=== PATIENT | female | born 1960 | race Caucasian/White ===

== ENCOUNTER → 2022-07-24 12:22 | Outpatient (BNVA) | payer OTHER, SELFPAY | PROVIDERS: Family Provider Family Medicine; PCP Family Medicine; Visit Provider Family Medicine | DX: I10 Essential (primary) hypertension (principal); E78.5 Hyperlipidemia, unspecified; Z00.00 Encounter for general adult medical examination without abnormal findings | CPT/HCPCS: 80053; 80061 ==

== ENCOUNTER 2022-08-07 11:34 | Outpatient (CLI) | payer OTHER, SELFPAY ==
--- NOTE | 2022-08-07 12:00 | MM_ITS ---
WS: [id number] Bilateral screening 3D tomosynthesis digital mammogram, 08/07/2022 Clinical Data: screening Comparison: 03/21/2015, 05/01/2010, 09/03/2006. Findings: The breast parenchymal pattern shows fibroglandular tissue. No spiculated masses or clustered calcifi cations are seen. There are no secondary signs of carcinoma. MM/[place] [id number] Impression: 1. Negative bilateral mammogram unchanged. 2. Recommend annual screening mammograms. BIRADS: 1-Negative FOLLOW UP: 1 Year Follow-up The CAD tip length checker was used.
--- NOTE | 2022-08-07 13:00 | XR_ITS ---
WS: [id number] SCREENING DEXA SCAN [employer] CLINICAL INFORMATION: screening COMPARISON: None. FINDINGS: The L1-L4 bone mineral density measures 0.901 g/cm2. This corresponds to a T score score of -2.3 and Z score of -1.4. Left femoral neck bone mineral density measures 0.921 g/cm2. This corresponds to a T score of -0.7 an d Z score of 0.0. Right femoral neck bone mineral density measures 0.913 g/cm2. This corresponds to a T score -0.8of an d Z score of 0.0. Mean femoral neck bone mineral density measures 0.917 g/cm2. This corresponds to a T score of -0.7 an d Z score of 0.0. XR/XR DEXA axial skeleton* [id number] IMPRESSION: Osteopenia lumbar spine at the upper end of the range. Normal bone mineralizati on femoral necks. Patient's FRAX calculated 10 year probability for major osteoporotic fracture i s 9.8 % and osteoporotic hip fracture is 1.2%.
== END 2022-08-07 11:35 | disposition home or self-care (01) ==
PROVIDERS: Family Provider Family Medicine; PCP Family Medicine; Visit Provider Family Medicine
DX: Z12.31 Encounter for screening mammogram for malignant neoplasm of breast (principal); Z13.820 Encounter for screening for osteoporosis; I10 Essential (primary) hypertension; M85.88 Other specified disorders of bone density and structure, other site
CPT/HCPCS: 77063; 77067; 77080

== ENCOUNTER → 2022-09-21 17:51 | Outpatient (BNVA) | payer OTHER, SELFPAY | PROVIDERS: Family Provider Family Medicine; PCP Family Medicine; Visit Provider Registered Nurse Neonatal Intensive Care | DX: M79.642 Pain in left hand (principal) | CPT/HCPCS: 73130 ==

== ENCOUNTER 2022-11-05 07:21 | Day surgery (SDC) | payer OTHER, SELFPAY ==
[2022-11-03 08:56] VITALS: BMI 27.8
[2022-11-05 07:40] VITALS: BP 114/91; PULSE 65; RESP 18; TEMP 36.1
[2022-11-05] MEDS: sodium chloride 0.9% 1,000 ML 30 ML IV (07:47)
--- NOTE | 2022-11-05 08:04 | ANES.PREANE2 ---
Pre-Anesthetic Assessment Height/Weight: Height 1.7 m Weight 80.739 kg Temp Pulse Resp BP O2 Del Method 97 F L 65 18 114/91 Room Air 11/05/22 07:40 11/05/22 07:40 11/05/22 07:40 11/05/22 07:40 11/05/22 07:40 Preop Diagnosis: Screening Operation Date: 11/05/22 09:00 Proposed Procedures p Colonoscopy 65537,Z12.11(Not Applicable) - Brooks Lemos DO Familial anesthetic complications: None Was Beta Marita taken within 24 hours: N/A Was Clonidine taken within 24 hours: N/A Last intake: Intake Last Liquid Date 11/04/22 Last Liquid Time 22:00 Last Solid Date 11/03/22 Last Solid Time 18:00 Social No alcohol and No tobacco Exam alert, oriented x 3, clear to auscultation bilaterally and regular rate & rhythm Airway Submandibular: within normal limits Cervical ROM: within normal limits Mallampati: Class III Dentition: full History/ROS No significant history except as noted Pulmonary None reported CV/HEM Hypertension None reported Hepatic None reported GI None reported Metabolic None reported Musc/skel None reported Neuropsych None reported Anesthetic Plan ASA status: 2 Anesthesia: Anesthesia Evaluation and MAC Risk of > 500 ml blood loss (7ml/kg in children): No Medications/Allergies Home Medications Medication Instructions Recorded Confirmed Last Taken Type hydrochlorothiazide 25 mg tablet 25 mg PO DAILY #30 tabs 07/24/22 11/03/22 11/04/22 Rx atorvastatin 10 mg tablet 10 mg PO DAILY #30 tabs 08/16/22 11/03/22 11/04/22 Rx escitalopram oxalate 10 mg tablet 10 mg PO DAILY 11/03/22 11/03/22 11/04/22 History (Lexapro) Allergies Allergy/AdvReac Type Severity Reaction Status Date / Time codeine Allergy rash Verified 11/03/22 08:54 morphine Allergy rash Verified 11/03/22 08:54 paxil Allergy Intermediate doesn't Uncoded 11/03/22 08:54 remember Current Medications Generic Name Dose Route Start Last Admin Trade Name Freq PRN Reason Stop Dose Admin Sodium Chloride 1,000 mls @ 30 mls/hr 11/05/22 07:45 11/05/22 07:47 Sodium Chloride 0.9% IV 11/06/22 07:44 30 mls/hr .Q24H SERVANDO Administration PFSH Anesthesia Medical History Hyperlipidemia Hypertension Data Anesthesia Cardiac Studies: No Data to Display
--- NOTE | 2022-11-05 08:31 | PM.HP ---
Providers/Chief Complaint Primary Care Provider: Jose D Fleming MD Chief Complaint: 36599 Z12.11 History of Present Illness Trisha Ibarra is a 62 year old female here for her first screening colonoscopy. She reports that she does have hemorrhoids and had a positive Cologuard. She denies any family history of colon cancer, nausea, emesis, diarrhea, abdominal pain, hematochezia and/or melena. Medications/Allergies Home Medications Medication Instructions Recorded Confirmed Last Taken Type hydrochlorothiazide 25 mg tablet 25 mg PO DAILY #30 tabs 07/24/22 11/03/22 11/04/22 Rx atorvastatin 10 mg tablet 10 mg PO DAILY #30 tabs 08/16/22 11/03/22 11/04/22 Rx escitalopram oxalate 10 mg tablet 10 mg PO DAILY 11/03/22 11/03/22 11/04/22 History (Lexapro) Allergies Allergy/AdvReac Type Severity Reaction Status Date / Time codeine Allergy rash Verified 11/03/22 08:54 morphine Allergy rash Verified 11/03/22 08:54 paxil Allergy Intermediate doesn't Uncoded 11/03/22 08:54 remember PFSH Acute PFSH: Medical History Hyperlipidemia Hypertension Vitals/I&O/Wt Last Vital Signs Temp 97 F L 11/05/22 07:40 Pulse 65 11/05/22 07:40 Resp 18 11/05/22 07:40 BP 114/91 11/05/22 07:40 O2 Del Method Room Air 11/05/22 07:40 Weight last 48 hrs Weight 178 lb A&P Assessment and plan (1) Colon cancer screening: Plan Screening colonoscopy The risks and benefits of the procedure, including bleeding, infection, intestinal perforation requiring surgery, missed lesion were explained to the patient. The patient is understanding of the risks and wishes to proceed. Attestations Medical Necessity Statement*: Home Coding Level of Care Code Acute Code for Chg Fwd Diagnoses Colon cancer screening Z12.11
[2022-11-05 08:51] VITALS: BP 120/67; PULSE 54; RESP 12; TEMP 36.1; O2SAT 98
[2022-11-05 09:01] VITALS: BP 130/76; PULSE 62; RESP 14; O2SAT 95
[2022-11-05 09:07] VITALS: BP 144/84; PULSE 57; RESP 16; O2SAT 95
--- NOTE | 2022-11-05 14:03 | ANE.PACU2 ---
Inpatient post-anesthesia follow up: Airway intact: Yes Vital signs: Temperature 97 F Pulse Rate 57 Respiratory Rate 16 Blood Pressure 144/84 Pulse Oximetry 95 Oxygen Delivery Me thod Room Air Oxygen Flow Rate Fraction of Inspir ed Oxygen Hydration adequate: Yes Nausea and vomiting: No Pain level: 1 Mental status: Baseline
== END 2022-11-05 09:35 | disposition home or self-care (01) ==
PROVIDERS: PCP Family Medicine; Visit Provider Surgery
PROC: 0DJD8ZZ Inspection of Lower Intestinal Tract, Via Natural or Artificial Opening Endoscopic (ICD-10-PCS; CPT 45378; principal; 2022-11-05 09:00)
DX: Z12.11 Encounter for screening for malignant neoplasm of colon (principal); I10 Essential (primary) hypertension; E78.5 Hyperlipidemia, unspecified; K64.9 Unspecified hemorrhoids; D12.5 Benign neoplasm of sigmoid colon
CPT/HCPCS: 45385; 88305; J2704; J7030

== ENCOUNTER → 2023-09-01 09:32 | Outpatient (BNVA) | payer OTHER, SELFPAY | PROVIDERS: PCP Family Medicine; Visit Provider Family Medicine | DX: I10 Essential (primary) hypertension (principal); E78.5 Hyperlipidemia, unspecified | CPT/HCPCS: 80053; 80061 ==

== ENCOUNTER 2023-09-28 08:24 | Outpatient (CLI) | payer OTHER, SELFPAY ==
--- NOTE | 2023-09-28 09:00 | MM_ITS ---
WS: [id number] VIEWS: MLO and CC views both breasts. 3D digital tomosynthesis is also included in this exam. Comparison made with prior exam of 05/01/2010, 03/21/2015, 08/07/2022, 09/03/2006.. Findings: There was no sign of mass, architectural distortion or suspicious calcification in either breast. The re are scattered areas of fibroglandular density Impression: MM/[place] [id number] BI-RADS: 2-Benign finding. FOLLOW-UP: 1 Year Follow-up This mammogram was also analyzed by the Computer Aided Detection System R2 Imag e Edi Analyst.
== END 2023-09-28 08:25 | disposition home or self-care (01) ==
LOC: RAD 08:25
PROVIDERS: PCP Family Medicine; Visit Provider Family Medicine
DX: Z12.31 Encounter for screening mammogram for malignant neoplasm of breast (principal)
CPT/HCPCS: 77063; 77067

== ENCOUNTER 2024-04-20 11:09 | Observation (INO) | payer OTHER, SELFPAY ==
[2024-04-20] VITALS (8 sets, daily range): BP systolic 145–175; BP diastolic 80–116; PULSE 53–126; RESP 15–18; TEMP 36.3–36.5; O2SAT 94–99; BMI 28.0
--- NOTE | 2024-04-20 11:11 | XRR_ITS ---
PROCEDURE INFORMATION: Exam: XR Chest Exam date and time: 04/20/2024 11:43 AM Age: 63 years old Clinical indication: Angina pectoris; Patient HX: Chest pain starting last night. PT has complaints of pain radiating to her back between shoulders. ; Additional info: Cp TECHNIQUE: Imaging protocol: Radiologic exam of the chest. Views: 1 view. COMPARISON: No relevant prior studies available. FINDINGS: Lungs: Calcified granuloma left mid lung zone. No infiltrate or edema. Pleural spaces: Unremarkable. No pleural effusion. No pneumothorax. Heart/Mediastinum: Unremarkable. No cardiomegaly. Bones/joints: Unremarkable. XR/XR chest 1V portable [id number] IMPRESSION: No acute findings.
--- NOTE | 2024-04-20 11:28 | ECG_ITS ---
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 Measurements Intervals [place] Rate: 66 P: 41 NV: 151 QRS: 53 QRSD: 90 T: 79 QT: 429 QTc: 451 Interpretive Statements SINUS RHYTHM MINIMAL ST DEPRESSION [0.025+ mV ST DEPRESSION] INTERPRETATION BASED ON A DEFAULT AGE OF 40 YEARS No previous ECG available for comparison Electronically Signed On 04-20-2024 16:42:57 CDT by Chelsi Diez M.D. [email or web address]; to ([id number] f
[2024-04-20 11:47] LABS: Basophils # 0.1 10^3/uL (0.0-0.1); Basophils % 1.2 %; Eosinophils # 0.1 10^3/uL (0.0-0.8); Eosinophils % 1.6 %; Hematocrit 44.9 % (36-47); Lymphocytes # 1.9 10^3/uL (0.8-4.8); Lymphocytes % 27.8 %; Mean Corpuscular HGB Conc 34.1 g/dL (30-55); Mean Corpuscular Hemoglobin 32.6 pg (27-33); Mean Corpuscular Volume 95.7 fl (85-98); Mean Platelet Volume 8.9 fL (7.4-10.4); Monocytes # 0.5 10^3/uL (0.2-0.9); Monocytes % 7.2 %; Neutrophils # 4.25 10^3/uL (1.8-7.7); Neutrophils % 62.1 %; Nucleated Red Blood Cells % 0 %; Platelet Count 299 10^3/cmm (157-399); Red Blood Count 4.69 10^6/uL (3.85-5.65); White Blood Count 6.84 10^3/uL (3.29-11.43)
[2024-04-20 12:07] LABS: Troponin(5th) Baseline 7 ng/L (0-10)
[2024-04-20 12:12] LABS: Alanine Aminotransferase 38 U/L (0-33); Albumin Level 5.2 g/dL (3.5-5.2); Alkaline Phosphatase 164 U/L (35-105); Anion Gap 17.2 (5-19); Aspartate Amino Transferase 36 U/L (0-32); Blood Urea Nitrogen 11 mg/dL (8-23); Calcium 9.9 mg/dL (8.5-10.5); Carbon Dioxide 26 mmol/L (22-29); Chloride 96 mmol/L (98-107); Creatinine Clr Calc Pharmacy 77.8757; Glomerular Filtration Rate 72.2 mL/min (90-130); Glucose 102 mg/dL (65-115); Lipase 32 U/L (13-60); Osmolality Calculated 280 mOsm/kg (285-295); Potassium 4.2 mmol/L (3.5-5.1); Sodium 135 mmol/L (136-145); Total Bilirubin 0.7 mg/dL (0.15-1.2); Total Protein 8.2 g/dL (6.6-8.7)
--- NOTE | 2024-04-20 13:11 | ECG_ITS ---
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 Measurements Intervals [place] Rate: 62 P: 37 SD: 153 QRS: 39 QRSD: 86 T: 80 QT: 423 QTc: 432 Interpretive Statements SINUS RHYTHM NONSPECIFIC T-WAVE ABNORMALITY No previous ECG available for comparison Electronically Signed On 04-20-2024 16:43:14 CDT by Chelsi Diez M.D. [id number]
--- NOTE | 2024-04-20 13:22 | ED_ITS ---
HPI - Chest Pain 2 General: Chief Complaint: Chest Pain Stated Complaint: chest pain Time Seen by Provider: 04/20/24 13:03 Source: patient Mode of arrival: ambulatory Limitations: no limitations History of Present Illness: 63-year-old female who states she been h aving chest pain the last 2 days. States that pain has been a pressure type pain in the center of the chest she denies any nausea or dyspnea no history of heart disease. She states she has had some hypotension as well. She states she was given a nitro at her PCPs office and her pain did improve but started having some mild pain again she rates a 2 out of 10. Associated symptoms: Deny abdominal pain, dyspnea, fever(s), nausea or vomiting Related Data Home Medications Medication Instructions Recorded Confirmed atorvastatin 10 mg tablet 5 mg PO DAILY 09/01/23 04/20/24 Previous Rx's Medication Instructions Recorded hydrochlorothiazide 25 mg tablet 25 mg PO DAILY #30 tabs 07/24/22 Allergies Allergy/AdvReac Type Severity Reaction Status Date / Time codeine Allergy rash Verified 11/28/22 16:09 morphine Allergy rash Verified 11/28/22 16:09 paxil Allergy Intermediate doesn't Uncoded 11/28/22 16:09 remember Review of Systems 2 Const: Denies: fever(s), chills, body aches or change in appetite ENMT: Denies: throat pain or dental pain Card: Reports: chest pain Resp: Denies: dyspnea GI: Denies: abdominal pain, nausea, vomiting or diarrhea Musc: Denies: neck pain or back pain Skin/Breast: Denies: rash Neuro: Denies: headache(s) PFSH ED 2 PFSH: Medical History Hyperlipidemia Hypertension Social History Smoking and tobacco/nicotine status: unknown if used tobacco/nicotine Physical Exam 2 Const: COMMON NORMALS: patient oriented x3 HENMT: COMMON NORMALS: normocephalic and atraumatic HEAD & SCALP: n ormocephalic and atraumatic Neck/C-Spine: COMMON NORMALS: full ROM and supple Chest: COMMONS NORMALS: normal inspection of the chest and normal palpation of entire chest wall Resp: COMMON NORMALS: normal respiratory effort, No retractions, No use of accessory muscles and clear to auscultation bilaterally AUSCULTATION: clear to auscultation bilaterally Cardio: COMMON NORMALS: regular rate, regular rhythm and No murmurs present (Cardio) RATE: regular rate RHYTHM: regular rhythm GI: COMMON NORMALS: Normal to inspection, nondistended, normoactive bowel sounds present, Soft to palpation, non-tender and no masses PALPATION: Yes Soft to palpation Extremity: COMMON NORMALS: normal to inspection and full ROM Neuro: COMMON NORMALS: patient oriented x3, moves all extremities and no focal motor deficits Psych: COMMON NORMALS: mental status grossly normal, Normal thought process present and cooperative THOUGHT PROCESS: Normal thought process present Skin: COMMON NORMALS: no rashes or lesions noted and no wounds GENERAL SKIN EXAM: no rashes or lesions noted Course 2 Vital Signs: Vital signs: Vital Signs Temperature 97.4 F L 04/20/24 11:31 Pulse Rate 65 04/20/24 14:24 Respiratory Rate 16 04/20/24 14:24 Blood Pressure 146/88 04/20/24 14:24 Pulse Oximetry 94 04/20/24 14:24 Oxygen Delivery Me thod Room Air 04/20/24 14:24 MDM - Chest Pain Medical Decision Making 63-year-old female presented here with chest pain initial repeat troponins here are negative no signs of PE or dissection she had some ongoing off-and-on pains here will admit at this time for ACS rule out. Medical Records I reviewed the patient's medical records. Lab Data I reviewed the patient's lab results. 04/20/24 11:28 04/20/24 11:28 Radiology Impressions Chest X-Ray 04/20/24 11:11 IMPRESSION: No acute findings. Laboratory Results WBC 6.84 10^3/uL (3.29-11.43) 04/20/24 11:28 RBC 4.69 10^6/uL (3.85-5.65) 04/20/24 11:28 Hgb 15.30 g/dL (11.27-16.99) 04/20/24 11:28 Hct 44.9 % (36-47) 04/20/24 11:28 MCV 95.7 fl (85-98) 04/20/24 11:28 MCH 32.6 pg (27-33) 04/20/24 11:28 MCHC 34.1 g/dL (30-55) 04/20/24 11: RDW 12.0 % (12.1-15.1) L 04/20/24 11:28 Plt Count 299 10^3/cmm (157-399) 04/20/24 11:28 MPV 8.9 fL (7.4-10.4) 04/20/24 11:28 Neut % (Auto) 62.1 % 04/20/24 11:28 Lymph % (Auto) 27.8 % 04/20/24 11:28 Randolph % (Auto) 7.2 % 04/20/24 11:28 Eos % (Auto) 1.6 % 04/20/24 11:28 Baso % (Auto) 1.2 % 04/20/24 11: Neut # (Auto) 4.25 10^3/uL (1.8-7.7) 04/20/24 11:28 Lymph # (Auto) 1.9 10^3/uL (0.8-4.8) 04/20/24 11:28 Randolph # (Auto) 0.5 10^3/uL (0.2-0.9) 04/20/24 11:28 Eos # (Auto) 0.1 10^3/uL (0.0-0.8) 04/20/24 11:28 Baso # (Auto) 0.1 10^3/uL (0.0-0.1) 04/20/24 11:28 Nucleated RBC % (auto) 0 % 04/20/24 11:28 Nucleated RBCs # 0.0 /100WBC 04/20/24 11:28 Sodium 135 mmol/L (136-145) L 04/20/24 11:28 Potassium 4.2 mmol/L (3.5-5.1) 04/20/24 11:28 Chloride 96 mmol/L (98-107) L 04/20/24 11:28 Carbon Dioxide 26 mmol/L (22-29) 04/20/24 11:28 Anion Gap 17.2 (5-19) 04/20/24 11:28 BUN 11 mg/dL (8-23) 04/20/24 11:28 Creatinine 0.8 mg/dL (0.5-0.9) 04/20/24 11:28 GFR Calculation 72.2 mL/min (90-130) L 04/20/24 11:28 Glucose 102 mg/dL (65-115) 04/20/24 11:28 Calculated Osmolality 280 mOsm/kg (285-295) L 04/20/24 11:28 Calcium 9.9 mg/dL (8.5-10.5) 04/20/24 11:28 Total Bilirubin 0.7 mg/dL (0.15-1.2) 04/20/24 11:28 AST 36 U/L (0-32) H 04/20/24 11:28 ALT 38 U/L (0-33) H 04/20/24 11:28 Alkaline Phosphatase 164 U/L (35-105) H 04/20/24 11:28 Troponin T Baseline 7 ng/L (0-10) 04/20/24 11:28 Troponin T 120 Minute 6.46 ng/L (0-10) 04/20/24 13:37 Delta Troponin T -0.54 ABS# (0-10) L 04/20/24 13:37 Total Protein 8.2 g/dL (6.6-8.7) 04/20/24 11:28 Albumin 5.2 g/dL (3.5-5.2) 04/20/24 11:28 Globulin 3.0 g/dL (1.3-4.6) 04/20/24 11:28 Lipase 32 U/L (13-60) 04/20/24 11:28 All radiology interpretation(s) finalized by discharge EKG Data EKG 1: I personally reviewed and interpreted this EKG as follows: EKG interpretation date: 04/20/24 EKG interpretation time: 13:11 Interpretation: nsr hr [address] elevation qrs 86 qtc 429 Discharge Plan Discharge Patient Disposition: Placed in Observation Clinical Impression: Chest pain Condition: Stable Prescriptions: No Action hydrochlorothiazide 25 mg tablet 25 mg PO DAILY Qty: 30 11RF atorvastatin 10 mg tablet 5 mg PO DAILY Referrals: Jose D Fleming MD [Primary Care Provider] - Coding Level of Care Code ED Outbound Sales Advisor for Chg Joesph
[2024-04-20 14:18] LABS: Troponin 5 2HR 6.46 ng/L (0-10)
[2024-04-20 14:20] LABS: Troponin 5 2HR Delta -0.54 ABS# (0-10)
--- NOTE | 2024-04-20 15:12 | USCV_ITS ---
Trisha Ibarra Age: 63 Gender: F : 1960 Exam Date: 04/20/2024 15:56 Ordering Phys: Larisa Varner MD Technologist: CT [place] [facility] [place] Indication: cp BP: 145 / 102 HR: 58 Rhythm: Sinus Technical Quality: Adequate MEASUREMENTS (Male / Female) Normal Values 2D ECHO LVOT Diameter 2.1 cm LV Ejection Fraction MOD 4C 64.4 % LV Ejection Fraction MOD 2C 65.1 % LV Ejection Fraction 2C AL 66.2 % LA Diameter 3.6 cm LA Sys Volume AL 47.7 cm cubed LA Sys Volume Index AL 23.9 cm cubed/m squared Aorta at Sinotubular Diameter 2.4 cm IVC Diameter 1.9 cm M-MODE LA Ao Ratio MM 1.6 AV Cusp Separation MM 2.2 cm DOPPLER AV Peak Velocity 86.0 cm/s LVOT Peak Velocity 74.0 cm/s AV Area Cont Eq vti 2.6 cm squared AV Area Cont Eq pk 3.0 cm squared MV Peak Velocity 98.0 cm/s MV Area PHT 2.4 cm squared Mitral E to A Ratio 0.7 TV Peak E Velocity 69.0 cm/s Right Atrial Pressure 3.0 mmHg PV Peak Velocity 91.0 cm/s FINDINGS Left Ventricle Left ventricle is normal in size. LV systolic function is normal with EF 55 to 60%. No regional wall motion abnormalities are seen. Grade 1 diastolic dysfunction Right Ventricle Normal in size and function Right Atrium Normal in size Left Atrium Normal in size Mitral Valve Structurally normal mitral valve. Trace mitral regurgitation. Aortic Valve Structurally normal aortic valve No significant stenosis or regurgitation. Tricuspid Valve Insufficient TR jet to calculate RVSP Pulmonic Valve Not well visualized Pericardium Normal Aorta Normal in size IVC Appears to be normal CONCLUSIONS LV systolic function is normal with EF 55 to 60%. Grade 1 diastolic dysfunction. Trace mitral regurgitation. No comparison studies are available. Epifanio Camargo MD (Electronically Signed) Final Date: 21 April 2024 13:44 S
--- NOTE | 2024-04-20 15:12 | P.HP_ITS ---
Documented by User: Larisa Varner MD 04/20/24 15:12 Providers/Chief Complaint 2 Primary Care Provider: Jose D Fleming MD Chief Complaint: chest pain History of Present Illness Trisha Ibarra is a 63 year old female Medications/Allergies Home Medications Medication Instructions Recorded Confirmed Last Taken Type hydrochlorothiazide 25 mg tablet 25 mg PO DAILY #30 tabs 07/24/22 04/20/24 04/20/24 Rx atorvastatin 10 mg tablet 5 mg PO DAILY 09/01/23 04/20/24 04/20/24 History Allergies Allergy/AdvReac Type Severity Reaction Status Date / Time codeine Allergy rash Verified 11/28/22 16:09 morphine Allergy rash Verified 11/28/22 16:09 paxil Allergy Intermediate doesn't Uncoded 11/28/22 16:09 remember PFSH Acute 2 PFSH: Medical History Hyperlipidemia Hypertension Social History Smoking and tobacco/nicotine status: unknown if used tobacco/nicotine Vitals/I&O/Wt Last Vital Signs Temp 97.4 F L 04/20/24 11:31 Pulse 65 04/20/24 14:24 Resp 16 04/20/24 14:24 BP 146/88 04/20/24 14:24 Pulse Ox 94 04/20/24 14:24 O2 Del Method Room Air 04/20/24 14:24 Weight last 48 hrs Weight 81.193 kg Data 04/20/24 11:28 04/20/24 11:28 A&P Assessment and plan (1) Hypertension: (2) Chest pain: (3) Hyperlipidemia: Coding Level of Care Code 74928 Diagnoses Hypertension I10 Chest pain R07.9 Hyperlipidemia E78.5 Documented by User: Donna Culp MD 04/20/24 19:02 Providers/Chief Complaint 2 Chief Complaint: chest pain History of Present Illness Trisha Ibarra is a 63 year old female With history of hypertension, takes hydrochlorothiazide, lives alone, no previous history of coronary disease presented with chief complaint of chest discomfort. Patient is stating that her symptoms started on Thursday evening when she started experiencing chest discomfort which she is describing as burning sensation, she attributed her symptoms of GERD initially, she started experiencing these chest discomfort on a regular and persistent basis, stating that last night it was pretty much persistent and got worse in the morning, she is denying nausea, vomiting, shortness of breath or diaphoresis. She is now describing it as pressure sensation which sometimes radiates toward her back. Troponin trending down, she is hypertensive blood pressure 170/69 mmHg, Review of Systems 2 Const: Denies: fever(s) Eyes: Denies: change in vision or eye discomfort ENMT: Denies: throat pain Card: Reports: chest pain Resp: Denies: dyspnea GI: Denies: abdominal pain Medications/Allergies Home Medications Medication Instructions Recorded Confirmed Last Taken Type hydrochlorothiazide 25 mg tablet 25 mg PO DAILY #30 tabs 07/24/22 04/20/24 04/20/24 Rx atorvastatin 10 mg tablet 5 mg PO DAILY 09/01/23 04/20/24 04/20/24 History Allergies Allergy/AdvReac Type Severity Reaction Status Date / Time codeine Allergy rash Verified 11/28/22 16:09 morphine Allergy rash Verified 11/28/22 16:09 paxil Allergy Intermediate doesn't Uncoded 11/28/22 16:09 remember PFSH Acute 2 PFSH: Medical History Hyperlipidemia Hypertension Social History Smoking and tobacco/nicotine status: unknown if used tobacco/nicotine Physical Exam 2 Narrative: Euvolemic Hypertensive GCS 15 Pleasant S1, S2 Breath sounds normal without any irritation cells Currently on room air Pleasant cooperative No active chest pain Data 04/20/24 11:28 04/20/24 11:28 A&P Assessment and plan (1) Hypertension: (2) Chest pain: (3) Hyperlipidemia: Plan Unstable angina Troponin starting down No active chest pain Hypertension Added lisinopril Will require stress test in the morning TSH and A1c requested Patient describing her pain as pressure, it started as burning sensation on Thursday It gets better with nitroglycerin She needs optimization of antihypertensive regimen, patient is stating that she takes hydrochlorothiazide on as-needed basis Full code Cardiac diet, n.p.o. after midnight Will request echo DVT prophylaxis added Attestations 2 Medical Necessity Statement*: Anticipating discharge within 42 hours Diagnoses Hypertension I10 Chest pain R07.9 Hyperlipidemia E78.5
[2024-04-20 15:49] LABS: Estmated Average Glucose 114; Hemoglobin A1C 5.6 % (4.0-6.0)
[2024-04-20 15:57] LABS: Cholesterol 342 mg/dL (0-200); HDL Cholesterol 59 mg/dL (60-100); LDL Cholesterol Calculated 225 mg/dL (50-129); LDL HDL Ratio 3.81 RATIO (0.00-3.22); Thyroid Stimulating Hormone 3.14 uIU/mL (0.27-4.20); Triglycerides 288 mg/dL (0-150)
[2024-04-20] MEDS: aspirin 81 mg Chew Tablet 324 MG PO (16:04)
[2024-04-20] MEDS: heparin 5,000 unit/mL INJ 1 mL 5000 UNIT SUBCUT (16:05)
--- NOTE | 2024-04-20 17:11 | ECG_ITS ---
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 Measurements Intervals [place] Rate: 63 P: 19 [place]: 159 QRS: 15 QRSD: 83 T: 77 QT: 411 QTc: 421 Interpretive Statements SINUS RHYTHM NONSPECIFIC ST & T-WAVE ABNORMALITY INTERPRETATION BASED ON A DEFAULT AGE OF 40 YEARS Compared to ECG 04/20/2024 13:11:46 No significant changes Electronically Signed On 04-21-2024 01:00:58 CDT by Chelsi Diez M.D. [id number]
[2024-04-20 18:27] LABS: Troponin 5 6HR 6.24 ng/L (0-10)
[2024-04-20 18:49] LABS: Troponin 5 6HR Delta -0.76 ng/L (0-12)
[2024-04-20] MEDS: atorvastatin 40 mg Tablet PO (20:03)
[2024-04-20] MEDS: lisinopril 10 mg Tablet PO (20:04)
[2024-04-20] MEDS: acetaminophen 325 mg Tablet 650 MG PO (20:04)
[2024-04-20] MEDS: lidocaine 2% viscous 15 ML, aluminum-mag hydrox-simethicon 30 ML, sucralfate oral liq 1 GM PO (20:07)
[2024-04-20 21:29] LABS: D Dimer 0.68 ug/mLFEU (0-0.59)
[2024-04-21] VITALS (8 sets, daily range): BP systolic 93–125; BP diastolic 60–78; PULSE 57–68; RESP 12–19; TEMP 36.4–36.6; O2SAT 92–97
[2024-04-21] MEDS: heparin 5,000 unit/mL INJ 1 mL 5000 UNIT SUBCUT (04:14)
[2024-04-21 05:36] LABS: Basophils # 0.1 10^3/uL (0.0-0.1); Basophils % 1.1 %; Eosinophils # 0.2 10^3/uL (0.0-0.8); Eosinophils % 2.7 %; Hematocrit 41.1 % (36-47); Lymphocytes # 2.2 10^3/uL (0.8-4.8); Lymphocytes % 30.4 %; Mean Corpuscular HGB Conc 33.3 g/dL (30-55); Mean Corpuscular Hemoglobin 32.2 pg (27-33); Mean Corpuscular Volume 96.7 fl (85-98); Mean Platelet Volume 9.5 fL (7.4-10.4); Monocytes # 0.7 10^3/uL (0.2-0.9); Monocytes % 10.4 %; Neutrophils # 3.93 10^3/uL (1.8-7.7); Neutrophils % 55.3 %; Nucleated Red Blood Cells % 0 %; Platelet Count 261 10^3/cmm (157-399); Red Blood Count 4.25 10^6/uL (3.85-5.65); White Blood Count 7.11 10^3/uL (3.29-11.43)
[2024-04-21 05:55] LABS: Anion Gap 15.7 (5-19); Blood Urea Nitrogen 19 mg/dL (8-23); Calcium 8.7 mg/dL (8.5-10.5); Carbon Dioxide 27 mmol/L (22-29); Chloride 98 mmol/L (98-107); Creatinine Clr Calc Pharmacy 62.3006; Glomerular Filtration Rate 55.8 mL/min (90-130); Glucose 105 mg/dL (65-115); Osmolality Calculated 287 mOsm/kg (285-295); Potassium 3.7 mmol/L (3.5-5.1); Sodium 137 mmol/L (136-145)
[2024-04-21] MEDS: regadenoson 0.4 Mg/5 ml Syringe IVP (07:08)
--- NOTE | 2024-04-21 07:21 | PC.NURSE ---
Patient is off the unit at shift change to stress test.
--- NOTE | 2024-04-21 08:40 | PC.NURSE ---
Patient returned from stress test at 0825.
--- NOTE | 2024-04-21 09:20 | PC.NURSE ---
Provider is updated on patients blood pressure of 93/68. Nursing held lisinopril, provider rosetta.
--- NOTE | 2024-04-21 09:47 | P.DS_ITS ---
Discharge Providers Date of Admission: 04/20/24 17:01 Date of Discharge: April 21, 2024 Attending Provider at Admission: Larisa Varner MD Attending Provider at Discharge: Donna Culp MD Primary Care Provider: Jose D Fleming MD Diagnoses at Discharge Discharge Diagnosis (1) Hypertension: Status: Acute (2) Chest pain: Status: Acute (3) Hyperlipidemia: Status: Acute Reason for Visit Reason for Visit: chest pain Hospital Course Hospital Course 63-year female who present to the hospital with chest discomfort which she describing as burning sensation initially which has gotten worse, her blood pressure has been fluctuating she was taking hydrochlorothiazide on as-needed basis, in the hospital she was started on lisinopril, cardiac stress test was requested, D-dimer remained unremarkable, troponins were trending down, no chest pain during hospitalization, she does have dyslipidemia, EKG without ischemic or infarctive changes, nonspecific T wave changes noted, normal TSH. After the stress test blood pressure dropped to 93/66 mmHg, I requested patient not to take hydrochlorothiazide at this point and take only low-dose lisinopril 5 mg daily, she still need to monitor her blood pressure on daily basis. Stress test discussed with the Camargo, he recommended discharge with small dose of lisinopril, patient stating that he is allergic to atorvastatin and would not take high dose, she may discuss with cardiology regarding Repatha Physical Exam Narrative: GCS 15 Pleasant well-appearing Hemodynamically stable Currently on room air No active chest pain awake and alert Discharge Data Studies Completed and Pending Completed Studies During Hospitalization Category Date Time Status XR chest 1V portable [id number] Stat Exams 04/20/24 11:11 Completed Pending at discharge Category Date Time Status Sestamibi Stress Test Request Stat Exams 04/20/24 15:12 Ordered NM gita perf SPECT r/s* [id number] Routine Nuc Med 04/21/24 15:14 Taken CV. echo complete* [id number] Stat Ultrasound 04/20/24 15:12 Taken Radiology Impressions Chest X-Ray 04/20/24 11:11 IMPRESSION: No acute findings. Laboratory Results WBC 7.11 10^3/uL (3.29-11.43) 04/21/24 04:15 RBC 4.25 10^6/uL (3.85-5.65) 04/21/24 04:15 Hgb 13.70 g/dL (11.27-16.99) 04/21/24 04:15 Hct 41.1 % (36-47) 04/21/24 04:15 MCV 96.7 fl (85-98) 04/21/24 04:15 MCH 32.2 pg (27-33) 04/21/24 04:15 MCHC 33.3 g/dL (30-55) 04/21/24 04:15 RDW 12.0 % (12.1-15.1) L 04/21/24 04:15 Plt Count 261 10^3/cmm (157-399) 04/21/24 04:15 MPV 9.5 fL (7.4-10.4) 04/21/24 04:15 Neut % (Auto) 55.3 % 04/21/24 04:15 Lymph % (Auto) 30.4 % 04/21/24 04:15 [place] % (Auto) 10.4 % 04/21/24 04:15 Eos % (Auto) 2.7 % 04/21/24 04:15 Baso % (Auto) 1.1 % 04/21/24 04:15 Neut # (Auto) 3.93 10^3/uL (1.8-7.7) 04/21/24 04:15 Lymph # (Auto) 2.2 10^3/uL (0.8-4.8) 04/21/24 04:15 [place] # (Auto) 0.7 10^3/uL (0.2-0.9) 04/21/24 04:15 Eos # (Auto) 0.2 10^3/uL (0.0-0.8) 04/21/24 04:15 Baso # (Auto) 0.1 10^3/uL (0.0-0.1) 04/21/24 04:15 Nucleated RBC % (auto) 0 % 04/21/24 04:15 Nucleated RBCs # 0.0 /100WBC 04/21/24 04:15 D-Dimer 0.68 ug/mLFEU (0-0.59) H 04/20/24 11:28 Sodium 137 mmol/L (136-145) 04/21/24 04:15 Potassium 3.7 mmol/L (3.5-5.1) 04/21/24 04:15 Chloride 98 mmol/L (98-107) 04/21/24 04:15 Carbon Dioxide 27 mmol/L (22-29) 04/21/24 04:15 Anion Gap 15.7 (5-19) 04/21/24 04:15 BUN 19 mg/dL (8-23) 04/21/24 04:15 Creatinine 1.0 mg/dL (0.5-0.9) H 04/21/24 04:15 GFR Calculation 55.8 mL/min (90-130) L 04/21/24 04:15 Glucose 105 mg/dL (65-115) 04/21/24 04:15 Estimat Average Glucose 114 04/20/24 11:28 Hemoglobin A1c 5.6 % (4.0-6.0) 04/20/24 11:28 Calculated Osmolality 287 mOsm/kg (285-295) 04/21/24 04:15 Calcium 8.7 mg/dL (8.5-10.5) 04/21/24 04:15 Total Bilirubin 0.7 mg/dL (0.15-1.2) 04/20/24 11:28 AST 36 U/L (0-32) H 04/20/24 11:28 ALT 38 U/L (0-33) H 04/20/24 11:28 Alkaline Phosphatase 164 U/L (35-105) H 04/20/24 11:28 Troponin T Baseline 7 ng/L (0-10) 04/20/24 11:28 Troponin T 120 Minute 6.46 ng/L (0-10) 04/20/24 13:37 Delta Troponin T -0.54 ABS# (0-10) L 04/20/24 13:37 Troponin T Hi Sens 6Hr 6.24 ng/L (0-10) 04/20/24 17:58 Troponin T Hi Sens 6Hr Delta -0.76 ng/L (0-12) L 04/20/24 17:58 Total Protein 8.2 g/dL (6.6-8.7) 04/20/24 11:28 Albumin 5.2 g/dL (3.5-5.2) 04/20/24 11:28 Globulin 3.0 g/dL (1.3-4.6) 04/20/24 11:28 Triglycerides 288 mg/dL (0-150) H 04/20/24 11:28 Cholesterol 342 mg/dL (0-200) H 04/20/24 11:28 LDL Cholesterol, Calc 225 mg/dL (50-129) H 04/20/24 11:28 HDL Cholesterol 59 mg/dL (60-100) L 04/20/24 11:28 LDL/HDL Ratio 3.81 RATIO (0.00-3.22) H 04/20/24 11:28 Cholesterol/HDL Ratio 5.80 mg/dL (0.0-4.40) H 04/20/24 11:28 Lipase 32 U/L (13-60) 04/20/24 11:28 TSH 3.14 uIU/mL (0.27-4.20) 04/20/24 11:28 Vitals Last Vital Signs Temp 97.8 F 04/21/24 04:00 Pulse 64 04/21/24 08:50 Resp 17 04/21/24 08:50 BP 93/66 04/21/24 08:50 Pulse Ox 96 04/21/24 08:50 O2 Del Method Room Air 04/21/24 08:50 Discharge Plan Discharge Patient Disposition: Home Condition: Stable Prescriptions: New lisinopril 5 mg tablet 5 mg PO DAILY Qty: 30 3RF Rx Instructions: Hold if blood pressure below 100/60-mmhg Changed atorvastatin 10 mg tablet 20 mg PO DAILY Qty: 90 0RF Discontinued hydrochlorothiazide 25 mg tablet 25 mg PO DAILY Qty: 30 11RF Discharge Orders: Discharge Order (Routine); Ordered 04/21/24 Ordered By: Donna Culp Referrals: Jose D Fleming MD [Primary Care Provider] - Donna Lee MD [Physician] - 7-10 days Discharge Diet: Cardiac Discharge Activity: Increase activity as tolerated Patient Instructions: Opioid Safety Activity Restrictions/Additional Instructions: If your blood pressure is staying above 130/80 Steele mercury it is okay to use of lisinopril 5 mg daily however if it goes down and stays below 100/60 mmHg then stop taking lisinopril Please maintain a blood pressure log and show to Dr. Fleming within a week or so. For your dyslipidemia take atorvastatin 20 mg daily. Discharge Attestations Time Spent in Discharge Care*: greater than 30 min Quality Metrics Clinical Quality Measures [ No reported AMI, CVA or VTE this stay] Coding Level of Care Code Acute Code for Chg Fwd Diagnoses Hypertension I10 Chest pain R07.9 Hyperlipidemia E78.5
--- NOTE | 2024-04-21 15:14 | NMCV_ITS ---
NM gita perf SPECT r/s* [id number] Trisha Ibarra Age: 63 Gender: F : 1960 Exam Date: 04/21/2024 06:27 Ordering Phys: Larisa Varner MD Technologist: CASE Malhotra Exam Location: [facility] Indications: CP STRESS TEST Please see separate stress test report in [facility] for full findings IMAGE PROTOCOL Rest/Stress 1 Lexiscan Day Radiopharmaceutical Dose (mCi) Administration Site Administered by Rest: Tc-99m 10.7 IV Pattie Bauman, PLODDER OPERATOR Sestamibi Stress:Tc-99m 32.9 IV Pattie Rameygle, PLODDER OPERATOR Sestamibi Rest: 21-Apr-2024 60 Discovery 630 Stress: 21-Apr-2024 30 Discovery 630 0.4mg Lexiscan. Images obtained in supine and prone position. SPECT RESULTS Technical Quality: Good Raw Data Analysis: Normal Image Corrections: No attenuation or motion correction applied Summed Stress Score: 4 Summed Rest Score: 0 Summed Difference Score: 4 PERFUSION FINDINGS . Small to moderate area of decreased minimal to moderately decreased tracer uptake involving the apical anterior, apical lateral and mid inferolateral segments. Complete reversibility was noted with the supine imaging. However with the prone imaging, no significant Perfusion normalities were noted FUNCTIONAL RESULTS (calculated via Gated SPECT) Stress Image LV EF (%): 74 Stress EDV (mL):66 TID: 0.95 Stress ESV (mL):17 FUNCTIONAL FINDINGS: segmental wall motion analysis revealing no gross wall motion abnormality IMPRESSIONS 1 .Myocardial perfusion imaging revealing small to moderate area of reversible defect involving the apical anterior, apical lateral and mid inferolateral segments suggesting ischemia in distribution of the left circumflex artery. However because of the inconsistency with the prone imaging, the reliability is questionable. clinical correlation recommended. 2. Normal LV ejection fraction 74% 3.. LV wall motion analysis revealing no gross wall motion abnormalities. 4. Normal LV volume. No similar previous studies are available for comparison Dr Chelsi Diez MD [facility] (Electronically Signed) Final Date: 21 April 2024 12:54 S
== END 2024-04-21 16:09 | disposition home or self-care (01) ==
LOC: ER 17:01 → CSU 17:01
PROVIDERS: Admitting Provider Internal Medicine; Emergency Provider Emergency Medicine; PCP Family Medicine; Visit Provider Internal Medicine
DX: R07.89 Other chest pain (principal); I10 Essential (primary) hypertension; E78.5 Hyperlipidemia, unspecified
CPT/HCPCS: 36415; 71045; 78452; 80048; 80053; 80061; 83036; 83690; 84443; 84484; 85025; 85378; 93005; 93017; 93306; 96372; 99285; A9500; G0378; J1644; J2785

== ENCOUNTER → 2024-04-28 11:39 | Outpatient (BNVA) | payer OTHER, SELFPAY | PROVIDERS: PCP Family Medicine; Visit Provider Family Medicine | DX: I16.0 Hypertensive urgency (principal); R07.9 Chest pain, unspecified | CPT/HCPCS: 80053; 83880; 84484; 85025 ==

== ENCOUNTER 2024-05-12 04:42 | Outpatient (CLI) | payer OTHER, SELFPAY ==
[2024-05-12] VITALS (63 sets, daily range): BP systolic 132–185; BP diastolic 70–97; PULSE 57–72; RESP 11–27; TEMP 36.7–37; O2SAT 90–100; BMI 28.1
[2024-05-12 05:20] LABS: Basophils # 0.1 10^3/uL (0.0-0.1); Basophils % 0.9 %; Eosinophils # 0.2 10^3/uL (0.0-0.8); Eosinophils % 2.8 %; Hematocrit 40.5 % (36-47); Lymphocytes # 2.4 10^3/uL (0.8-4.8); Lymphocytes % 36.6 %; Mean Corpuscular HGB Conc 32.8 g/dL (30-55); Mean Corpuscular Volume 97.6 fl (85-98); Mean Platelet Volume 8.7 fL (7.4-10.4); Monocytes # 0.6 10^3/uL (0.2-0.9); Neutrophils # 3.28 10^3/uL (1.8-7.7); Neutrophils % 50.5 %; Nucleated Red Blood Cells % 0 %; Platelet Count 267 10^3/cmm (157-399); Red Blood Count 4.15 10^6/uL (3.85-5.65); Red Cell Distribution Width 12.1 % (12.1-15.1); White Blood Count 6.48 10^3/uL (3.29-11.43)
[2024-05-12] MEDS: diphenhydrAMINE 50 mg Capsule PO (05:23)
[2024-05-12] MEDS: aspirin 325 mg Tablet PO (05:23)
[2024-05-12 05:38] LABS: Anion Gap 15.1 (5-19); Blood Urea Nitrogen 15 mg/dL (8-23); Calcium 8.8 mg/dL (8.5-10.5); Carbon Dioxide 26 mmol/L (22-29); Chloride 104 mmol/L (98-107); Glomerular Filtration Rate 72.2 mL/min (90-130); Glucose 97 mg/dL (65-115); Osmolality Calculated 293 mOsm/kg (285-295); Potassium 4.1 mmol/L (3.5-5.1); Sodium 141 mmol/L (136-145)
--- NOTE | 2024-05-12 06:00 | XACV_ITS ---
Exam Room: [facility] Ht: 170 cm Wt: 82 kg BSA: 1.98 m2 Gender: Female : 1960 Any Known Allergies: Other Exam Priority: Routine Indication(s): - Chest pain - Unstable angina Procedure(s): Procedure Description: Diagnostic procedure Procedure Description: PCI procedure Procedure Description: Left Heart Catheterization Procedure Description: Drug Eluting Coronary Stent Procedure Description: Miscellaneous Procedure Description: ACT Procedure Description: Coronary Angiography Procedure Description: Pressure Wire Rosa HERBERT; Diagnostic Cath Status: Elective Diagnostic Findings * Left Main has no disease. * Left Anterior Descending has no disease. * Circumflex has no disease. * Proximal Right Coronary Artery: obstructive 60% stenosis, AP: 3 flow. * Mid Right Coronary Artery to Distal Right Coronary Artery: significant 80% stenosis, AP: 3 flow. * Distal Right Coronary Artery: significant 80% stenosis, AP: 3 flow. * Coronary angiography shows right dominance. * IFR: After equalizing the distal and proximal pressure of IFR wire proximal to the lesion, mid RCA lesion was crossed with IFR wire. Spot IFR was recorded 0.87, which is significant a pullback was performed which normalized IFR in the proximal part of the RCA showing that proximal lesion is not significant however mid RCA had significant lesion.. PCI Status: Elective PCI Indication: New Onset Angina <= 2 months Interventional Findings * Mid Right Coronary Artery to Distal Right Coronary Artery: 80% stenosis treated with a AB TREK 2.50X12 RX BALLOON, MDT R BRUNA 3.0X26 KANDIS, and MDT NC EUPHORA RX 3.44S47XP BALLOON. 0% residual stenosis, AP: 3 flow. * Distal Right Coronary Artery: 80% stenosis treated with a MDT R BRUNA 2.75X8 KANDIS, and MDT NC EUPHORA RX 3.08S79TB BALLOON. 0% residual stenosis, AP: 3 flow. Conclusions 1. There is significant coronary artery disease with one vessel disease. 2. Mid Right Coronary Artery to Distal Right Coronary Artery was treated with a Balloon, Drug Eluting Stent, and Balloon. 3. Distal Right Coronary Artery was treated with a Drug Eluting Stent, and Balloon. Recommendations * 1-Return to inpatient for close monitoring and routine cath care 2-Risk factor modification for secondary prevention 3-Statin with LDL goal <70 mg/dl, aspirin 81 mg life-long 4-Patient was pre-loaded with 180mg of Brillinta. Continue Brillinta 90mg p.o. twice daily for at least one year. We will assess at the end of one year again to continue it further or not 5-Continue optimal medical management 6-Follow up with Dr. Lee in four weeks and with your PCP in one week. Interventional RX Recommendation: PCI w/o planned CABG Diagnostic RX Recommendation: PCI w/o planned CABG Pressures Phase:Rest AO : / ( 0 ) @ 6:49:00 AM 101 / 59 ( 79 ) @ 7:05:00 AM 99 / 56 ( 75 ) @ 7:05:00 AM 107 / 59 ( 81 ) @ 7:11:00 AM 89 / 49 ( 64 ) @ 7:22:00 AM 80 / 35 ( 52 ) @ 7:23:00 AM 104 / 52 ( 74 ) @ 7:23:00 AM 138 / 71 ( 99 ) @ 7:25:00 AM 111 / 42 ( 71 ) @ 7:26:00 AM 120 / 71 ( 92 ) @ 7:26:00 AM / ( 0 ) @ 7:42:00 AM 124 / 65 ( 89 ) @ 7:44:00 AM 97 / 49 ( 67 ) @ 7:49:00 AM 156 / 74 ( 106 ) @ 7:56:00 AM 104 / 56 ( 73 ) @ 8:04:00 AM LV : 133 / 27 / 26 @ 7:44:00 AM Clinical Evaluation EBL: 5mL-10mL Procedural Details Procedure Consent Obtained. Admit Source: Out Patient. Current Diagnosis : Unstable angina. Pre-Procedure Time Out. Identified patient by full name and date of as verbalized by the patient/guarantor. Does the consent match the physician's order: Yes. Accurate & Complete Informed Consent: Yes. Inpatient/Outpatient History & Physical on Chart: Yes. If H&P is completed, is and addenduem needed: No; If yes, is the addendum complete: N/A. Visualize and Verify Site with Patient/Guarantor: N/A. Relevant Radiology Images available: N/A. Procedure started. [facility] Clinical Fraility Score: 3: Managing Well. Recruiting Consultant Indications: Worsening Angina. Chest Pain Symptom Assessment: Typical Angina Symptoms. Correct patient, site and procedure confirmed by cath team. Current diagnosis: Chest Pain, Abnormal stress test. PERRLA. Strong, equal hand legal activity adjudicator bilaterally. Lungs clear x 5 lobes. IV Site on Arrival: 20 gauge in the right anticubital. IV Fluids: 0.9% NaCl at KVO. 0 mL infused prior to bottle labeler. Pre Procedural Pulses: bilateral radial was 3+. Pre Procedural Pulses: bilateral posterior tibial was Doppled. Pre Procedural Pulses: bilateral dorsalis pedis was Doppled. Oxygen started at 2liters/min via nasal canula. right radial was prepped with chloroprep then draped in the usual sterile fashion. right groin was prepped with chloroprep then draped in the usual sterile fashion. Physician notified. Baseline sample Acquired. HR: 66 BPM. Physician arrived. Physician scrubbed in. Immediate Pre-Procedure Time Out. Correct Patient: Yes; Correct Procedure: Yes; Correct Site: Yes; Correct Patient Position: Yes; Correct Supplies: Yes; Dried Flammable Prep: Yes; Blood Products Available: N/A;. Lidocaine 1% infiltrated to the right radial. Arterial access obtained. A 5 iraqi TIG catheter in over wire. Multiple views taken of right coronary artery. Catheter redirected to the LCA. Multiple views taken of left coronary artery. Catheter removed over the wire. 6 iraqi JR 4 guide catheter was inserted over the wire. JR 4 Guide seated. ACT drawn. Results 224 seconds. Therapeutic limits - pre-heparin administration 90-150 seconds and monitoring heparin during a vascular procedure >250 seconds. IFR wire inserted. Channels/IFR calibrated and Zeroed. IFR wire advanced across lesion in the rca. IFR SPOT 0.87. IFR wire removed. Runthrough guidewire was advanced through the guide catheter to lesion in the mid RCA. Inflation number : 1 A AB TREK 2.50X12 RX BALLOON was prepped and advanced across the Mid RCA , then inflated to 10 JAMESON for 0:14 seconds. Inflation number: 2 The AB TREK 2.50X12 RX BALLOON was reinflated across the Mid RCA, to 12 JAMESON for 0:16 seconds. Inflation number: 3 The AB TREK 2.50X12 RX BALLOON was reinflated across the Mid RCA, to 12 JAMESON for 0:10 seconds. Results checked. Balloon out. Inflation Number : 4 A MDT R BRUNA 3.0X26 KANDIS -Lot Number# [id number] was prepped and advanced across the Mid RCA. The stent was deployed at 12 JAMESON for 0:30 seconds. EXP 07/27/2026. Results checked. Stent balloon out over wire. Results checked. Inflation number : 5 A MDT NC EUPHORA RX 3.39Y42FQ BALLOON was prepped and advanced across the Mid RCA , then inflated to 8 JAMESON for 0:15 seconds. Inflation number: 6 The MDT NC EUPHORA RX 3.12Z69KR BALLOON was reinflated across the Mid RCA, to 12 JAMESON for 0:21 seconds. Inflation number: 7 The MDT NC EUPHORA RX 3.90D51IQ BALLOON was reinflated across the Mid RCA, to 14 JAMESON for 0:16 seconds. Inflation number: 8 The MDT NC EUPHORA RX 3.95R13LJ BALLOON was reinflated across the Mid RCA, to 14 JAMESON for 0:24 seconds. Inflation number: 9 The MDT NC EUPHORA RX 3.80F72RR BALLOON was reinflated across the Mid RCA, to 14 JAMESON for 0:17 seconds. Inflation number: 10 The MDT NC EUPHORA RX 3.95W46XD BALLOON was reinflated across the Mid RCA, to 14 JAMESON for 0:20 seconds. Balloon out. ACT drawn. Results OUT OF RANGE HIGH. Therapeutic limits - pre-heparin administration 90-150 seconds and monitoring heparin during a vascular procedure >250 seconds. Results checked. Wire out. Results checked. Runthrough wire reinserted. Guidewire advanced across lesion. Stent will not cross. Stent removed intact. Guideliner inserted. GUIDE unseated. Guideliner and wire out. MD review of films. Guide catheter out over the wire. 6 iraqi JR 4 SH guide catheter was inserted over the wire. ACT drawn. Results 372 seconds. Therapeutic limits - pre-heparin administration 90-150 seconds and monitoring heparin during a vascular procedure >250 seconds. Guide seated. EDP Sample taken: LV 133/27,26; HR: 62 BPM; SpO2: 93%. Pullback taken: LV Off; AO Off; Mean: , Peak to Peak: , SEP: ; HR: 64 BPM; SpO2: 91%. Runthrough guidewire was advanced through the guide catheter to lesion in the distal RCA. Inflation Number : 1 A MDT R BRUNA 2.75X8 KANDIS -Lot Number# [id number] was prepped and advanced across the Dist RCA. The stent was deployed at 12 JAMESON for 0:20 seconds. EXP 08/18/2024. Inflation number: 2 The stent balloon was then re-inflated across the Dist RCA to 14 JAMESON for 0:12 seconds. Stent balloon out over the wire. Results checked. Guide not functioning properly. MD switched out. Runthrough wire removed. Guides exchanged. Swapped out for a new JR 4 SH. Guide seated. Runthrough guidewire was advanced through the guide catheter to lesion in the distal RCA. Guidewire advanced across lesion. Inflation number : 3 A MDT NC EUPHORA RX 3.46R25GM BALLOON was prepped and advanced across the Dist RCA , then inflated to 10 JAMESON for 0:22 seconds. Inflation number: 4 The MDT NC EUPHORA RX 3.01O23ZA BALLOON was reinflated across the Dist RCA, to 10 JAMESON for 0:14 seconds. Inflation number: 5 The MDT NC EUPHORA RX 3.62V12UW BALLOON was reinflated across the Dist RCA, to 8 JAMESON for 0:10 seconds. Inflation number: 6 The MDT NC EUPHORA RX 3.16K08TD BALLOON was reinflated across the Dist RCA, to 12 JAMESON for 0:15 seconds. Results checked. Balloon out. Results checked. Wire out. Results checked. Guide catheter out. Physician review of films. Physician scrubbed out. A TR Band was successful obtaining hemostatsis at the Right Radial artery insertion site. TR band placed. Hemostasis obtained. Post Procedure: Pulses reassessed and unchanged. PERRLA. Strong, equal hand legal activity adjudicator bilaterally. No VTE prophylaxis required. Medication waste: Lidocaine- 18 ml. Nitro- 49.2 mg. Heparin- 2000 units. Versed - 1 mg. Fentanyl- 50 mcg. Total IV fluids: 130 mL. Fluoro: 25:05. Contrast type used: Omnipaque 300 mgI/mL, 500 mL bottle. [id number]. Post-op diagnosis: RCA stenosis; Status post 2 Drug Eluting Stents. Complications: None. Estimated blood loss: 5mL-10mL. Responsiveness - Normal response to verbal stimuli; alert and oriented, PERRLA. Airway - Unaffected, no intervention required; spontaneous ventilation. Circulation: W/N/L, pulses unchanged. Nausea/Vomiting: N/A. Procedure completed. Vital chart was stopped. Patient transferred by wheelchair to ICU. Access Site Site: Right Radial artery Sheath Size: 6 Fr Hemostasis Method: TR Band Hemostasis Success: Successful Procedure Medications Start: 6:24 AM Stop: 6:24 AM Medication: Zofran (ondansetron) Amount: 4 mg Route: I.V. Start: 6:28 AM Stop: 6:28 AM Medication: Versed Amount: 1 mg Route: I.V. Start: 6:28 AM Stop: 6:28 AM Medication: Fentanyl Amount: 25 mcg Route: I.V. Start: 6:32 AM Stop: 6:32 AM Medication: Versed Amount: 1 mg Route: I.V. Start: 6:33 AM Stop: 6:33 AM Medication: Fentanyl Amount: 25 mcg Route: I.V. Start: 6:37 AM Stop: 6:37 AM Medication: Nitrogylcerin Amount: 200 mcg Route: I.A. Start: 6:39 AM Stop: 6:39 AM Medication: Heparin Amount: 5000 units Route: I.V. Start: 6:41 AM Stop: 6:41 AM Medication: Versed Amount: 1 mg Route: I.V. Start: 6:50 AM Stop: 6:50 AM Medication: Versed Amount: 1 mg Route: I.V. Start: 7:01 AM Stop: 7:01 AM Medication: Heparin Amount: 4000 units Route: I.V. Start: 7:03 AM Stop: 7:03 AM Medication: Fentanyl Amount: 25 mcg Route: I.V. Start: 7:04 AM Stop: 7:04 AM Medication: Versed Amount: 1 mg Route: I.V. Start: 7:12 AM Stop: 7:12 AM Medication: Versed Amount: 1 mg Route: I.V. Start: 7:14 AM Stop: 7:14 AM Medication: Nitrogylcerin Amount: 200 mcg Route: I.C. Start: 7:16 AM Stop: 7:16 AM Medication: Fentanyl Amount: 25 mcg Route: I.V. Start: 7:24 AM Stop: 7:24 AM Medication: Nitrogylcerin Amount: 200 mcg Route: I.C. Start: 7:33 AM Stop: 7:33 AM Medication: Fentanyl Amount: 25 mcg Route: I.V. Start: 7:36 AM Stop: 7:36 AM Medication: Fentanyl Amount: 25 mcg Route: I.V. Start: 7:40 AM Stop: 7:40 AM Medication: Versed Amount: 1 mg Route: I.V. Start: 8:03 AM Stop: 8:03 AM Medication: Nitrogylcerin Amount: 200 mcg Route: I.C. I, the attending physician, have reviewed and verified all procedure medications. Yes, all medications given per verbal order History/Risk Factors Hypertension: Yes Dyslipidemia: Yes Peripheral Arterial Disease (PAD): No Myocardial Infarction (ND): No Obesity: No Renal Disease: No Prior Interventions PCI: No CABG: No Valve Surgery: No Report Signatures Finalized by Donna Lee MD on 06/02/2024 10:28 PM
--- NOTE | 2024-05-12 06:28 | W.PM.OPSUD ---
Surgery/Procedure H&P Update DATE OF PROCEDURE: May 12, 2024 DATE H&P PERFORMED: 04/27/24 H&P UPDATE INFORMATION: I have reviewed H&P completed within last 30 days, I have examined patient prior to procedure and Changes to prior documentation as noted here (Worsening of chest pressure and GERD like feeling despite of PPI suggestive of unstable angina) PLANNED PROCEDURE: Operation Date: 05/12/24 07:00 Proposed Procedures p Cardiac Catheterization(Left) - Donna Lee MD PATIENT REASSESSED PRIOR TO SEDATION, WITH NO CHANGE NOTED: Yes PHYSICAL EXAM: alert, oriented x 3, clear to auscultation bilaterally, regular rate & rhythm and operative site marked AIRWAY EVAL/ANESTHESIA PLAN: ASA II, Risks, benefits & alternatives of sedation and/or procedure discussed and Patient agrees to continue as planned ADDITIONAL INFORMATION: Mallampati 2
--- NOTE | 2024-05-12 09:15 | PC.NURSE ---
Pt received loading dose of Brilinta in Reading Intervention Teacher. Called Dr Lee regarding scheduled Brilinta dosing. Restart Brilinta 90mg BID tomorrow morning.
[2024-05-12] MEDS: aspirin 81 mg EC Tablet PO (09:19)
[2024-05-12] MEDS: sodium chloride 0.9% 1,000 ML 100 ML IV (09:32)
--- NOTE | 2024-05-12 16:17 | PC.NURSE ---
Pt presented to ICU with 16mls of air in TR Band per Jonathon, Bump Grader Operator nurse. Deflated TR Band 1-2 mls per order since receiving pt. When oozing would occur, air reinflated per protocol and restarted time. Discoloration at site marked for comparison. Site remained soft. Pt denied pain. Currently, 12 mls of air remain in TR Band. Discoloration has not changed for several hours but is now slightly firm. Dr Lee notified and will see pt.
--- NOTE | 2024-05-12 22:28 | PC.NURSE ---
Upon arrival to shift, Dr. Lee, myself, and dayshift nurse were at patient's bedside. Patient had a noted hematoma to right wrist with 12mL remaining in TR band. Patient denied pain. After a couple hours or resumed pressure, this nurse released 2mL of air Q15min at a time from TR band, at 2225 the TR band was removed, no leaking or increase in size to hematoma noted.
--- NOTE | 2024-05-12 23:40 | P.HP_ITS ---
Providers/Chief Complaint 2 Admitting Physician: Donna Lee MD Primary Care Provider: Jose D Fleming MD Chief Complaint: I20.0, R06.02 History of Present Illness Trisha Ibarra is a 63 year old female was admitted today after left heart catheterization for worsening of angina and shortness of breath she was noted to have significant mid RCA and nonsignificant proximal RCA disease by IFR. It was treated with 2 overlapping drug-eluting stent from mid to distal RCA postdilated with noncompliant balloon. Excellent angiographic result and AP-3 flow was achieved. Rest of vessel including left main LAD and circumflex has luminal irregularities. Medications/Allergies Home Medications Medication Instructions Recorded Confirmed Last Taken Type acetaminophen 500 mg capsule 500 mg PO BID 04/27/24 05/11/24 Unknown History amlodipine 2.5 mg tablet 2.5 mg PO BID #180 tabs 04/27/24 05/11/24 05/12/24 04:00 Rx ibuprofen 200 mg capsule 200 mg PO BID 04/27/24 05/11/24 05/11/24 20:00 History rosuvastatin 10 mg tablet (Crestor) 10 mg PO DAILY #90 tabs 04/27/24 05/11/24 05/11/24 20:00 Rx Allergies Allergy/AdvReac Type Severity Reaction Status Date / Time atorvastatin Allergy bad hip Verified 05/12/24 05:35 pain codeine Allergy rash Verified 05/12/24 05:35 lisinopril Allergy cough Verified 05/12/24 05:35 morphine Allergy rash Verified 05/12/24 05:35 paxil Allergy Intermediate doesn't Uncoded 05/12/24 05:35 remember macrobid Allergy ALGY-Difficulty Uncoded 05/12/24 05:35 Breathing PFSH Acute 2 PFSH: Medical History Chest pain Hyperlipidemia Hypertension Social History Smoking and tobacco/nicotine status: unknown if used tobacco/nicotine Vitals/I&O/Wt Last Vital Signs Temp 98.0 F 05/12/24 08:30 Pulse 64 05/12/24 22:00 Resp 14 05/12/24 21:45 BP 152/88 05/12/24 21:45 Pulse Ox 90 05/12/24 21:45 O2 Del Method Room Air 05/12/24 21:15 05/12/24 05/12/24 05/13/24 14:59 22:59 06:59 Intake Total 1000 / 1000 Balance 1000 / 1000 Weight last 48 hrs Weight 180 lb Physical Exam 2 Const: OTHER: GENERAL: Patient is alert, awake and oriented x3. HEART: Regular S1 and S2. No murmur, rub or gallop. LUNGS: Clear to auscultate bilaterally. CENTRAL NERVOUS SYSTEM: Grossly nonfocal. EXTREMITIES: Lower extremities with out edema bilaterally. Data 05/12/24 05:15 05/12/24 05:15 A&P Assessment and plan (1) CAD (coronary artery disease): Status post PCI to mid to distal RCA with 2 overlapping drug-eluting stent. Excellent angiographic result was achieved. Patient will be admitted for observation post PCI. Continue aspirin statin and Brilinta. Continue home medicine in the form of amlodipine 5 mg once a day. Patient will be advised to take 90 mg of Brilinta twice a day and 81 mg of aspirin for at least 1 year. Qualifiers: Coronary Disease-Associated Artery/Lesion type: [place] artery [place] vs. transplanted heart: [place] heart Associated angina: with unstable angina Qualified Code(s): I25.110 - Atherosclerotic heart disease of [place] coronary artery with unstable angina pectoris (2) Labile hypertension: Continue amlodipine 5 mg give first dose now Plan Require continuation hospitalization for above defined care Attestations 2 Medical Necessity Statement*: I am not expecting patient's stay to cross more than 1 midnight. Coding Level of Care Code Acute Code for [facility] Diagnoses Coronary artery disease involving [place] coronary artery of [place] heart with unstable angina pectoris I25.110 Coronary Disease-Associated Artery/Lesion type: [place] artery [place] vs. transplanted heart: [place] heart Associated angina: with unstable angina Labile hypertension R09.89
[2024-05-13] VITALS (54 sets, daily range): BP systolic 101–153; BP diastolic 63–90; PULSE 59–77; RESP 13–30; TEMP 36.3–36.8; O2SAT 88–99; BMI 28.5
--- NOTE | 2024-05-13 01:14 | PC.NURSE ---
Hold amlodipine: Patient's BP was maintained below [address] Lee gave telephone orders to hold evening dose of amlodipine.
[2024-05-13 05:06] LABS: Basophils # 0.1 10^3/uL (0.0-0.1); Basophils % 0.8 %; Eosinophils # 0.2 10^3/uL (0.0-0.8); Eosinophils % 2.6 %; Hematocrit 38.7 % (36-47); Lymphocytes # 1.8 10^3/uL (0.8-4.8); Mean Corpuscular HGB Conc 33.3 g/dL (30-55); Mean Corpuscular Hemoglobin 32.7 pg (27-33); Mean Platelet Volume 9.2 fL (7.4-10.4); Monocytes # 0.6 10^3/uL (0.2-0.9); Monocytes % 9.7 %; Neutrophils # 3.93 10^3/uL (1.8-7.7); Neutrophils % 59.4 %; Nucleated Red Blood Cells % 0 %; Platelet Count 257 10^3/cmm (157-399); Red Blood Count 3.95 10^6/uL (3.85-5.65); Red Cell Distribution Width 12.2 % (12.1-15.1)
[2024-05-13 05:30] LABS: Anion Gap 15.3 (5-19); Blood Urea Nitrogen 14 mg/dL (8-23); Calcium 8.7 mg/dL (8.5-10.5); Carbon Dioxide 26 mmol/L (22-29); Chloride 102 mmol/L (98-107); Creatinine Clr Calc Pharmacy 78.0794; Glomerular Filtration Rate 72.2 mL/min (90-130); Glucose 103 mg/dL (65-115); Osmolality Calculated 289 mOsm/kg (285-295); Potassium 4.3 mmol/L (3.5-5.1); Sodium 139 mmol/L (136-145)
[2024-05-13] MEDS: amlodipine 5 mg Tablet PO (08:15)
[2024-05-13] MEDS: aspirin 81 mg EC Tablet PO (08:15)
[2024-05-13] MEDS: ticagrelor 90 mg Tablet PO (08:16)
--- NOTE | 2024-05-13 13:04 | PC.NURSE ---
Discharge vitals: Temp: 97.9 HR: 71 BP: 129/83 RR: 17 SPO2: 97% RA
--- NOTE | 2024-05-13 13:05 | PC.NURSE ---
Patient being discharged. IVs removed. Vitals documents. Education provided on upcoming appointments and new medications. Medications provided via Meds to bed. patient signature form signed.
--- NOTE | 2024-05-13 15:39 | PM.DCS ---
Discharge Providers Date of Admission: 05/12/2024 Date of Discharge: May 13, 2024 Attending Provider at Admission: Donna Lee MD Attending Provider at Discharge: Donna Lee MD Consults: none Primary Care Provider: Jose D Fleming MD Diagnoses at Discharge Discharge Diagnosis (1) CAD (coronary artery disease): Details from hospital stay: Trisha Ibarra is a 63 year old female was admitted after left heart catheterization for worsening of angina and shortness of breath she was noted to have significant mid RCA and nonsignificant proximal RCA disease by IFR. It was treated with 2 overlapping drug-eluting stent from mid to distal RCA postdilated with noncompliant balloon. Excellent angiographic result and AP-3 flow was achieved. Rest of vessel including left main LAD and circumflex has luminal irregularities. Recommend continue aspirin and Brilinta x 1 year. Status: Acute Qualifiers: Coronary Disease-Associated Artery/Lesion type: [place] artery [place] vs. transplanted heart: [place] heart Associated angina: with unstable angina Qualified Code(s): I25.110 - Atherosclerotic heart disease of [place] coronary artery with unstable angina pectoris (2) Labile hypertension: Details from hospital stay: Well-controlled blood pressure 129/83. Status: Acute Reason for Visit Reason for Visit: I20.0, R06.02 Brief History: Trisha Ibarra is a 63 year old female was admitted today after left heart catheterization for worsening of angina and shortness of breath she was noted to have significant mid RCA and nonsignificant proximal RCA disease by IFR. It was treated with 2 overlapping drug-eluting stent from mid to distal RCA postdilated with noncompliant balloon. Excellent angiographic result and AP-3 flow was achieved. Rest of vessel including left main LAD and circumflex has luminal irregularities. Post cath patient did well. She did have some bruising of the right upper wrist. This was moderate. No evidence of hematoma. Patient with some tenderness but no signs of limb threatening ischemia. She was educated to elevate the arm. She has full function of the area. Discussed with patient no heavy lifting more than a gallon of milk as well as going up or down steps for 3 days. No driving for 3 days. Monitor for and report signs or symptoms of bleeding. Monitor for and report s/s of infection such as fever 101 or greater, swelling, redness or pain to the wrist. Hospital Course Hospital Course Trisha Ibarra is a 63 year old female was admitted today after left heart catheterization for worsening of angina and shortness of breath she was noted to have significant mid RCA and nonsignificant proximal RCA disease by IFR. It was treated with 2 overlapping drug-eluting stent from mid to distal RCA postdilated with noncompliant balloon. Excellent angiographic result and AP-3 flow was achieved. Rest of vessel including left main LAD and circumflex has luminal irregularities. Post cath patient did well. She did have some bruising of the right upper wrist. This was moderate. No evidence of hematoma. Patient with some tenderness but no signs of limb threatening ischemia. She was educated to elevate the arm. She has full function of the area. Discussed with patient no heavy lifting more than a gallon of milk as well as going up or down steps for 3 days. No driving for 3 days. Monitor for and report signs or symptoms of bleeding. Monitor for and report s/s of infection such as fever 101 or greater, swelling, redness or pain to the wrist. Physical Exam Narrative: General: No apparent distress, healthy appearing, well nourished HENMT: normoceophalic Eye: PERRL Neck: No carotid bruit bilaterally Muskuloskeletal: Full ROM Lymphatic: no lymphedema noted Respiratory: Normal respiratory effort, clear to auscultation bilaterally throughout all lung elder, no use of accessory muscles Cardio: No JVD, regular rate, regular rhythm, S1 S2 normal, no murmurs, peripheral pulses 2+ throughout GI: Normal to inspection, nondistended Extremities: Full ROM, normal, normal capillary refill, no cyanosis or edema Neuro: Alert and oriented x4, no focal motor deficits Psych: Affect normal, denies suicidal ideation, mental status grossly normal Skin: Right wrist with moderate bruising from previous cath site no evidence of hematoma area soft mildly tender full function of patient's upper extremity no signs of ischemia Discharge Data Studies Completed and Pending Pending at discharge Category Date Time Status LABOR RELATIONS DIRECTOR request for service Routine Exams 05/12/24 06:00 Taken Laboratory Results WBC 6.60 10^3/uL (3.29-11.43) 05/13/24 04:17 RBC 3.95 10^6/uL (3.85-5.65) 05/13/24 04:17 Hgb 12.90 g/dL (11.27-16.99) 05/13/24 04:17 Hct 38.7 % (36-47) 05/13/24 04:17 MCV 98.0 fl (85-98) 05/13/24 04:17 MCH 32.7 pg (27-33) 05/13/24 04:17 MCHC 33.3 g/dL (30-55) 05/13/24 04:17 RDW 12.2 % (12.1-15.1) 05/13/24 04:17 Plt Count 257 10^3/cmm (157-399) 05/13/24 04:17 MPV 9.2 fL (7.4-10.4) 05/13/24 04:17 Neut % (Auto) 59.4 % 05/13/24 04:17 Lymph % (Auto) 27.0 % 05/13/24 04:17 [place] % (Auto) 9.7 % 05/13/24 04:17 Eos % (Auto) 2.6 % 05/13/24 04:17 Baso % (Auto) 0.8 % 05/13/24 04:17 Neut # (Auto) 3.93 10^3/uL (1.8-7.7) 05/13/24 04:17 Lymph # (Auto) 1.8 10^3/uL (0.8-4.8) 05/13/24 04:17 [place] # (Auto) 0.6 10^3/uL (0.2-0.9) 05/13/24 04:17 Eos # (Auto) 0.2 10^3/uL (0.0-0.8) 05/13/24 04:17 Baso # (Auto) 0.1 10^3/uL (0.0-0.1) 05/13/24 04:17 Nucleated RBC % (auto) 0 % 05/13/24 04:17 Nucleated RBCs # 0.0 /100WBC 05/13/24 04:17 Sodium 139 mmol/L (136-145) 05/13/24 04:17 Potassium 4.3 mmol/L (3.5-5.1) 05/13/24 04:17 Chloride 102 mmol/L (98-107) 05/13/24 04:17 Carbon Dioxide 26 mmol/L (22-29) 05/13/24 04:17 Anion Gap 15.3 (5-19) 05/13/24 04:17 BUN 14 mg/dL (8-23) 05/13/24 04:17 Creatinine 0.8 mg/dL (0.5-0.9) 05/13/24 04:17 GFR Calculation 72.2 mL/min (90-130) L 05/13/24 04:17 Glucose 103 mg/dL (65-115) 05/13/24 04:17 Calculated Osmolality 289 mOsm/kg (285-295) 05/13/24 04:17 Calcium 8.7 mg/dL (8.5-10.5) 05/13/24 04:17 Vitals Last Vital Signs Temp 97.9 F 05/13/24 12:45 Pulse 65 05/13/24 12:45 Resp 19 H 05/13/24 12:45 BP 129/83 05/13/24 13:00 Pulse Ox 96 05/13/24 12:45 O2 Del Method Room Air 05/13/24 10:45 Discharge Plan Discharge Patient Disposition: Home Prescriptions: New aspirin 81 mg Tablet,Delayed Release (Dr/Ec) 81 mg PO DAILY 90 Days Qty: 90 3RF Brilinta 90 mg Tablet 90 mg PO BID 30 Days Qty: 60 0RF Continued acetaminophen 500 mg capsule 500 mg PO BID ibuprofen 200 mg capsule 200 mg PO BID rosuvastatin [Crestor] 10 mg tablet 10 mg PO DAILY Qty: 90 3RF amlodipine 2.5 mg tablet 2.5 mg PO BID Qty: 180 2RF Discharge Orders: Discharge Order (Routine); Ordered 05/13/24 Ordered By: Milana Paredes Referrals: Ratna Abraham FNP [Nurse Practitioner] - 05/25/24 3:30 pm (post angiogram follow up, an appoitnment has been arranged for you if you are not able to keep this appointment please contact the clinic to arrange your follow up care. ) Jose D Fleming MD [Primary Care Provider] - 05/17/24 12:20 pm Patient Instructions: CHF Stoplight, Post Angiogram Home Care Instructions Activity Restrictions/Additional Instructions: Discussed with patient no heavy lifting more than a gallon of milk as well as going up or down steps for 3 days. No driving for 3 days. Monitor for and report signs or symptoms of bleeding. Monitor for and report s/s of infection such as fever 101 or greater, swelling, redness or pain to the wrist. Elevate wrist at least to level of the heart when not in use. Discharge Date/Time: 05/13/24 13:23 Discharge Attestations Time Spent in Smoking Cessation: more than 10 minutes Coding Level of Care Code Acute Code for [facility] Diagnoses Coronary artery disease involving [place] coronary artery of [place] heart with unstable angina pectoris I25.110 Coronary Disease-Associated Artery/Lesion type: [place] artery [place] vs. transplanted heart: [place] heart Associated angina: with unstable angina Labile hypertension R09.89
== END 2024-05-13 13:23 | disposition home or self-care (01) ==
LOC: CCL 04:52 → ICU 10:53
PROVIDERS: PCP Family Medicine; Visit Provider Internal Medicine Cardiovascular Disease
DX: I25.110 Atherosclerotic heart disease of native coronary artery with unstable angina pectoris (principal); R09.89 Other specified symptoms and signs involving the circulatory and respiratory systems; E78.5 Hyperlipidemia, unspecified; I10 Essential (primary) hypertension
CPT/HCPCS: 36415; 80048; 85025; 85347; 93458; 93571; 96374; 96375; 99152; 99153; C1725; C1769; C1874; C1887; C1894; C9600; J1644; J2250; J2405; J3010; J3490; J7030; Q0163; Q9967

== ENCOUNTER → 2024-05-19 13:42 | Outpatient (BNVA) | payer OTHER, SELFPAY | PROVIDERS: PCP Family Medicine; Visit Provider Nurse Practitioner Family | DX: I25.110 Atherosclerotic heart disease of native coronary artery with unstable angina pectoris (principal) | CPT/HCPCS: 36415; 80048 ==

== ENCOUNTER → 2024-07-13 12:38 | Outpatient (BNVA) | payer MEDICARE, SELFPAY | PROVIDERS: PCP Family Medicine; Visit Provider Internal Medicine Cardiovascular Disease | DX: I25.110 Atherosclerotic heart disease of native coronary artery with unstable angina pectoris (principal); I10 Essential (primary) hypertension; Z87.891 Personal history of nicotine dependence | CPT/HCPCS: 99213 ==

== ENCOUNTER → 2024-09-23 08:19 | Outpatient (BNVA) | payer MEDICARE, SELFPAY | PROVIDERS: PCP Family Medicine; Visit Provider Family Medicine | DX: I10 Essential (primary) hypertension (principal); E78.5 Hyperlipidemia, unspecified; I25.110 Atherosclerotic heart disease of native coronary artery with unstable angina pectoris | CPT/HCPCS: 80053; 80061; 85025 ==

== ENCOUNTER 2024-11-18 12:01 | Outpatient (CLI) | payer MEDICARE, SELFPAY ==
[2024-11-18 13:00] LABS: Free T4 Free Thyroxine 1.27 ng/dL (0.82-1.77); T3 Free 2.9 PG/ML (2.0-4.4)
== END 2024-11-18 12:02 | disposition home or self-care (01) ==
PROVIDERS: PCP Family Medicine; Visit Provider Internal Medicine Cardiovascular Disease
DX: I10 Essential (primary) hypertension (principal); R53.83 Other fatigue
CPT/HCPCS: 36415; 84439; 84443; 84481

== ENCOUNTER → 2024-12-22 10:50 | Outpatient (BNVA) | payer MEDICARE, SELFPAY | PROVIDERS: PCP Family Medicine; Visit Provider Family Medicine | DX: I10 Essential (primary) hypertension (principal); I25.110 Atherosclerotic heart disease of native coronary artery with unstable angina pectoris | CPT/HCPCS: 80053; 80061; 85025 ==

== ENCOUNTER → 2025-01-23 13:03 | Outpatient (BNVA) | payer MEDICARE, SELFPAY | PROVIDERS: PCP Family Medicine; Visit Provider Internal Medicine Cardiovascular Disease | DX: I25.10 Atherosclerotic heart disease of native coronary artery without angina pectoris (principal); I10 Essential (primary) hypertension; I87.2 Venous insufficiency (chronic) (peripheral); E78.5 Hyperlipidemia, unspecified; Z79.02 Long term (current) use of antithrombotics/antiplatelets; Z79.82 Long term (current) use of aspirin; Z95.5 Presence of coronary angioplasty implant and graft; Z87.891 Personal history of nicotine dependence | CPT/HCPCS: 99214 ==

== ENCOUNTER 2025-02-08 07:04 | Outpatient (CLI) | payer MEDICARE, SELFPAY ==
--- NOTE | 2025-02-08 07:15 | USCV_ITS ---
Trisha Ibarra Age: 64 Gender: F : 1960 Exam Date: 02/08/2025 07:12 Ordering Phys: Donna Lee MD ([email or web address]) Technologist: R Exam Location[place] [facility] [place]ication: SCREENING HISTORY: Diameter (cm) AP x Transverse x Length Velocity (cm/s) Waveform Prox Aorta: 1.70 x 1.70 x 69.50 Mid Aorta: 1.80 x 1.90 x 80.00 Distal Aorta: 2.00 x 2.00 x 73.90 Right Iliac Prox: 0.90 x 1.10 x 96.90 Left Iliac Prox: 0.89 x 1.16 x 88.00 Stent Prox Landing x x Aneurysmal Sac Max x x Lt Lat Sac Dim Rt Lat Sac Dim Stent Dist [place] x x Right Iliac Stent x x Left Iliac Stent x x Right Renal Art Left Renal Art FINDINGS: Comparison: none available. A complete assessment of the abdominal aorta was not possible. No evidence of abdominal aortic aneurysm. There is no evidence of right common iliac artery stenosis. There is no evidence of left common iliac artery stenosis. CONCLUSIONS No evidence of abdominal aortic or bilateral iliac aneurysm. Dr. Brooklyn Wells DO (Electronically Signed) Final Date: 08 February 2025 09:02 S
== END 2025-02-08 07:05 | disposition home or self-care (01) ==
LOC: RAD 07:04
PROVIDERS: PCP Family Medicine; Visit Provider Internal Medicine Cardiovascular Disease
DX: Z13.6 Encounter for screening for cardiovascular disorders (principal); R07.9 Chest pain, unspecified
CPT/HCPCS: 76706

== ENCOUNTER 2025-04-13 11:20 | Emergency (ER) | payer MEDICARE, SELFPAY ==
[2025-04-13 11:22] VITALS: BP 123/89; PULSE 118; RESP 18; TEMP 36.7; O2SAT 100
--- NOTE | 2025-04-13 11:27 | CT_ITS ---
WS: [id number] CT HEAD TECHNIQUE: Noncontrast CT of the head obtained from the skullbase to the vertex. CLINICAL INFORMATION: Symptoms of acute stroke COMPARISON: 2012 DLP: [address] scans at [facility] use at least one of these dose optimization techniques: automated exposure control; mA and/or kV adjustment per patient size (includes targeted exams where dose is matched to clinical indication); or iterative reconstruction. FINDINGS: No evidence of intracranial hemorrhage or mass effect. Ventricular system and basal cisterns are patent. Mild small vessel changes with no significant parenchymal volume loss. No extra-axial fluid collections. No evidence of mass or mass effect. Vascular calcification. Paranasal sinuses and mastoid air cells are well aerated. .Normal visualized soft tissues. CT/CT head thrombolytic [id number] IMPRESSION: 1. No evidence of intracranial hemorrhage or mass effect. 2. No acute intracranial findings. Notified Erna Delaney MD at 04/13/2025 11:46 AM.
--- NOTE | 2025-04-13 11:27 | CT_ITS ---
WS: [id number] CTA HEAD AND NECK TECHNIQUE: Contrast enhanced CTA of the head and neck with coronal and sagittal reformatted images and maximum intensity projection (MIP) images. NASCET criteria utilized. CLINICAL INFORMATION: Possible stroke COMPARISON: None. DLP: 423.[address] scans at [facility] use at least one of these dose optimization techniques: automated exposure control; mA and/or kV adjustment per patient size (includes targeted exams where dose is matched to clinical indication); or iterative reconstruction. FINDINGS: RIGHT: Mild atheromatous plaque RIGHT carotid bulb. No significant RIGHT ICA stenosis. RIGHT ICA is patent to the skull base. LEFT: LEFT common carotid artery is patent. Mild atheromatous plaque LEFT carotid bulb. No significant LEFT ICA stenosis. LEFT ICA is patent to the skull base. INTRACRANIAL CTA: The basilar artery is patent. Normal vascularity to the PHYSICIAN LIAISON territory bilaterally. Both ICAs are patent at the skull base. Mild cavernous carotid calcification. Normal vascularity to the JAE and MCA territories bilaterally. No evidence of proximal flow-limiting stenosis. Patent posterior communicating arteries bilaterally. Proximal subclavian arteries are patent. CT/CT angio headneck* [id number] IMPRESSION: 1. No significant cervical ICA stenosis. 2. No flow-limiting intracranial stenosis.
--- NOTE | 2025-04-13 11:28 | W.ED.NEUROSD ---
HPI - Neuro Symptoms/Deficit General: Chief Complaint: Neuro Symptoms/Deficit Stated Complaint: Possible Stroke Time Seen by Provider: 04/13/25 11:27 History of Present Illness: 64-year-old female with history of coronary artery disease status post stents on Plavix and lovastatin, Venous insufficiency, hyperlipidemia, hypertension who presents to the emergency room with neurologic symptoms that have since resolved. [facility] suddenly felt numb on her left face and her left arm was numb and felt like it was not her she says. Some weakness in it. This only lasted briefly and then went away but then came back again briefly and is now gone. No slurred speech. No altered mental status. No chest pain. No abdominal pain. Currently she has no neurologic symptoms. Related Data Home Medications ?Medication ?Instructions ?Recorded ?Confirmed acetaminophen 500 mg capsule 500 mg PO BID PRN Pain 07/13/24 04/13/25 Previous Rx's ?Medication ?Instructions ?Recorded aspirin 81 mg tablet,delayed 81 mg PO DAILY 90 days #90 tabs 05/13/24 release nitroglycerin 0.4 mg sublingual 0.4 mg sublingual Q5M PRN chest 05/17/24 tablet pain #25 tabs clopidogrel 75 mg tablet 75 mg PO DAILY #90 tabs 05/19/24 lovastatin 20 mg tablet 20 mg PO DAILY #90 tabs 06/22/24 pantoprazole 40 mg tablet,delayed 40 mg PO DAILY #90 tabs 06/22/24 release amlodipine 2.5 mg tablet 2.5 mg PO BID #180 tabs 03/07/25 lovastatin 40 mg tablet 40 mg PO DAILY #30 tabs 04/13/25 Allergies Allergy/AdvReac Type Severity Reaction Status Date / Time paroxetine (From Paxil) Allergy Intermediate Unknown Verified 01/23/25 13:36 atorvastatin Allergy bad hip Verified 01/23/25 13:36 pain codeine Allergy rash Verified 01/23/25 13:36 lisinopril Allergy cough Verified 01/23/25 13:36 morphine Allergy rash Verified 01/23/25 13:36 nitrofurantoin (From Allergy ALGY-Difficulty Verified 01/23/25 13:36 Macrobid) Breathing rosuvastatin AdvReac Mild severe Verified 01/23/25 13:36 constipation Review of Systems Narrative: Constitutional symptoms: Negative except as documented in HPI. Skin symptoms: Negative except as documented in HPI. Eye symptoms: Negative except as documented in HPI. ENMT symptoms: Negative except as documented in HPI. Respiratory symptoms: Negative except as documented in HPI. Cardiovascular symptoms: Negative except as documented in HPI. Gastrointestinal symptoms: Negative except as documented in HPI. Genitourinary symptoms: Negative except as documented in HPI. Musculoskeletal symptoms: Negative except as documented in HPI. Neurologic symptoms: Negative except as documented in HPI. Psychiatric symptoms: Negative except as documented in HPI. Endocrine symptoms: Negative except as documented in HPI. PFSH ED PFSH: Medical History (Updated 04/13/25 @ 12:34 by Erna Delaney MD) Hyperlipidemia Hypertension Chest pain Social History (Updated 01/23/25 @ 13:37 by Chitra Holliday LPN) Smoking and tobacco/nicotine status: former use of tobacco/nicotine Physical Exam Narrative: EXAM NARRATIVE: General: Alert, no acute distress. Skin: Warm, dry. Head: Normocephalic, atraumatic. Neck: Supple, trachea midline. Eye: Extraocular movements are intact. Ears, nose, mouth and throat: mucosa moist. Cardiovascular: Regular, Normal peripheral perfusion. Respiratory: Lungs are clear to auscultation, respirations are non-labored, breath sounds are equal, Symmetrical chest wall expansion. Gastrointestinal: Soft, Nontender, Non distended Musculoskeletal: Normal ROM, no deformity. Neurological: Alert and oriented, No focal neurological deficit observed. Psychiatric: Cooperative, appropriate mood & affect. Course Vital Signs: Vital signs: Vital Signs Temperature 98.7 F 04/13/25 12:04 Pulse Rate 56 L 04/13/25 12:46 Respiratory Rate 15 04/13/25 12:20 Blood Pressure 170/68 04/13/25 12:46 Pulse Oximetry 94 04/13/25 12:46 Oxygen Delivery Me thod Room Air 04/13/25 12:04 MDM - Neuro Symptoms/Deficit Medical Decision Making Medical decision making: Differential diagnosis for patient with focal neurologic deficit(s) includes but not limited to and based on the above HPI, review of systems and physical exam: ischemic stroke, hemorrhagic stroke and embolic stroke secondary to atrial fibrillation), TIA, Nielsen's palsey, metabolic encephalopathy with previous stroke. Orders placed to evaluate differential diagnosis based on the above differential, HPI and physical exam EKG: Time 1216. Rate 56. Sinus bradycardia, No ST-T changes, no ectopy, normal AL & QRS intervals, This was reviewed and interpreted by myself the ER physician at 1220 CT head: No acute intracranial process. No intracranial hemorrhage, no evidence of infarct. No evidence of acute fracture. This was reviewed and interpreted by myself the emergency room physician. I also reviewed the radiology report. CTA head and neck: No significant cervical stenosis. No flow-limiting intracranial stenosis. This was reviewed and interpreted by myself the emergency room physician. I also reviewed the radiology report. Lab Review: Laboratory results were reviewed and interpreted by myself the emergency room physician. No leukocytosis. No anemia. No renal failure. Urinalysis is negative for infection. I reviewed the patient's medical record. Reexamination: Patient remained stable. No increased work of breathing. No altered mental status. No focal motor deficits. Assessment and plan: Transient ischemic attack ?Patient is already on Plavix but is on low-dose lovastatin so I increased her from 20-40. She has had some intolerance of atorvastatin in the past. - Discharged home - Discussed plan with patient. Answered any questions. - Evaluation and treatment of this problem were appropriate in the emergency setting. Lab Data 04/13/25 11:42 04/13/25 11:[address] 04/13/25 11:27 IMPRESSION: 1. No evidence of intracranial hemorrhage or mass effect. 2. No acute intracranial findings. Notified Erna Delaney MD at 04/13/2025 11:46 AM. Head/Neck CTA 04/13/25 11:27 IMPRESSION: 1. No significant cervical ICA stenosis. 2. No flow-limiting intracranial stenosis. Laboratory Results WBC 5.46 10^3/uL (3.29-11.43) 04/13/25 11:42 RBC 4.18 10^6/uL (3.85-5.65) 04/13/25 11:42 Hgb 13.50 g/dL (11.27-16.99) 04/13/25 11:42 Hct 40.0 % (36-47) 04/13/25 11:42 MCV 95.7 fl (85-98) 04/13/25 11:42 MCH 32.3 pg (27-33) 04/13/25 11:42 MCHC 33.8 g/dL (30-55) 04/13/25 11:42 RDW 12.3 % (12.1-15.1) 04/13/25 11:42 Plt Count 245 10^3/cmm (157-399) 04/13/25 11:42 MPV 8.9 fL (7.4-10.4) 04/13/25 11:42 Neut % (Auto) 48.3 % 04/13/25 11:42 Lymph % (Auto) 39.2 % 04/13/25 11:42 Humphreys % (Auto) 9.0 % 04/13/25 11:42 Eos % (Auto) 1.8 % 04/13/25 11:42 Baso % (Auto) 1.5 % 04/13/25 11:42 Neut # (Auto) 2.64 10^3/uL (1.8-7.7) 04/13/25 11:42 Lymph # (Auto) 2.1 10^3/uL (0.8-4.8) 04/13/25 11:42 Humphreys # (Auto) 0.5 10^3/uL (0.2-0.9) 04/13/25 11:42 Eos # (Auto) 0.1 10^3/uL (0.0-0.8) 04/13/25 11:42 Baso # (Auto) 0.1 10^3/uL (0.0-0.1) 04/13/25 11:42 Nucleated RBC % (auto) 0 % 04/13/25 11:42 Nucleated RBCs # 0.0 /100WBC 04/13/25 11:42 PT 12.80 SECONDS (12.1-14.9) 04/13/25 11:42 INR 0.90 (0.8-1.2) 04/13/25 11:42 APTT 30.5 SECONDS (23.9-36.7) 04/13/25 11:42 Sodium 144 mmol/L (136-145) 04/13/25 11:42 Potassium 3.6 mmol/L (3.5-5.1) 04/13/25 11:42 Chloride 107 mmol/L (98-107) 04/13/25 11:42 Carbon Dioxide 24 mmol/L (22-29) 04/13/25 11:42 Anion Gap 16.6 (5-19) 04/13/25 11:42 BUN 13 mg/dL (8-23) 04/13/25 11:42 Creatinine 0.9 mg/dL (0.5-0.9) 04/13/25 11:42 GFR Calculation 62.8 mL/min (90-130) L 04/13/25 11:42 Glucose 94 mg/dL (65-115) 04/13/25 11:42 POC Glucose 86 mg/dL (70-110) 04/13/25 11:54 Calculated Osmolality 298 mOsm/kg (285-295) H 04/13/25 11:42 Calcium 9.2 mg/dL (8.5-10.5) 04/13/25 11:42 Total Bilirubin 0.5 mg/dL (0.15-1.2) 04/13/25 11:42 AST 22 U/L (0-32) 04/13/25 11:42 ALT 19 U/L (0-33) 04/13/25 11:42 Alkaline Phosphatase 127 U/L (35-105) H 04/13/25 11:42 Total Protein 7.5 g/dL (6.6-8.7) 04/13/25 11:42 Albumin 4.6 g/dL (3.5-5.2) 04/13/25 11:42 Globulin 2.9 g/dL (1.3-4.6) 04/13/25 11:42 Urine Color Yellow (Yellow) 04/13/25 12:10 Urine Appearance Clear (CLEAR) 04/13/25 12:10 Urine pH 7.5 (5-7) 04/13/25 12:10 Ur Specific [place] 1.039 (1.005-1.030) H 04/13/25 12:10 Urine Protein Negative (Negative) 04/13/25 12:10 Urine Glucose (UA) Negative (Normal) 04/13/25 12:10 Urine Ketones Negative (Negative) 04/13/25 12:10 Urine Blood Negative (Negative) 04/13/25 12:10 Urine Nitrate Negative (Negative) 04/13/25 12:10 Urine Bilirubin Negative (Negative) 04/13/25 12:10 Urine Urobilinogen 0.2 mg/dL (Negative) 04/13/25 12:10 Ur Leukocyte Esterase Negative (Negative) 04/13/25 12:10 Amorphous Sediment Not Reportable 04/13/25 12:10 Urine Opiates Screen Negative ng/mL (Negative) 04/13/25 12:10 Ur Barbiturates Screen Negative ng/mL (Negative) 04/13/25 12:10 Ur Phencyclidine Scrn Negative ng/mL (Negative) 04/13/25 12:10 Ur Amphetamines Screen Negative ng/mL (Negative) 04/13/25 12:10 U Benzodiazepines Scrn Negative ng/mL (Negative) 04/13/25 12:10 Urine Cocaine Screen Negative ng/mL (Negative) 04/13/25 12:10 U Marijuana (THC) Screen Negative ng/mL (Negative) 04/13/25 12:10 All radiology interpretation(s) finalized by discharge Discharge Plan Discharge Patient Disposition: Home Clinical Impression: Transient ischemic attack Condition: Stable Prescriptions: New lovastatin 40 mg tablet 40 mg PO DAILY Qty: 30 1RF No Action clopidogrel 75 mg tablet 75 mg PO DAILY Qty: 90 3RF acetaminophen 500 mg capsule 500 mg PO BID PRN (Reason: Pain) nitroglycerin 0.4 mg tablet, sublingual 0.4 mg sublingual Q5M PRN (Reason: chest pain) Qty: 25 3RF Rx Instructions: do not exceed 3 doses per episode lovastatin 20 mg tablet 20 mg PO DAILY Qty: 90 3RF pantoprazole 40 mg tablet,delayed release (DR/EC) 40 mg PO DAILY Qty: 90 3RF amlodipine 2.5 mg tablet 2.5 mg PO BID Qty: 180 2RF aspirin 81 mg Tablet,Delayed Release (Dr/Ec) 81 mg PO DAILY 90 Days Qty: 90 3RF Discharge Orders: Discharge ED (Routine); Ordered 04/13/25 Ordered By: Erna Delaney Referrals: Jose D Fleming MD [Primary Care Provider, Family Practice] Discharge Diet: Usual diet Discharge Activity: Increase activity as tolerated Patient Instructions: Transient Ischemic Attack (ED), Opioid Safety, Pain Management, Patient Portal & Goldie Instructions Activity Restrictions/Additional Instructions: Thank you for choosing [facility] for your healthcare needs today. You have been screened and evaluated and felt safe for discharge. Health conditions do change or evolve sometimes and as such it is important that you follow up with your Primary Doctor to be re checked, 3-5 days is a general good time frame for follow up. You are always welcome to return to the ED for re assessment if your symptoms are worsening or you have new concerns Print Language: Kenyan Coding Level of Care Code ED Executive Director for Shivam Pink
[2025-04-13] MEDS: iohexol 350 mg/mL 500 mL Btl (per mL) IV (11:43)
[2025-04-13 11:50] LABS: Hematocrit 40.0 % (36-47); Hemoglobin 13.50 g/dL (11.27-16.99); Mean Corpuscular HGB Conc 33.8 g/dL (30-55); Mean Corpuscular Hemoglobin 32.3 pg (27-33); Mean Corpuscular Volume 95.7 fl (85-98); Nucleated Red Blood Cells % 0 %; Platelet Count 245 10^3/cmm (157-399); Red Blood Count 4.18 10^6/uL (3.85-5.65); White Blood Count 5.46 10^3/uL (3.29-11.43)
[2025-04-13 12:04] VITALS: BP 170/68; PULSE 62; RESP 17; TEMP 37.1; O2SAT 98
[2025-04-13 12:04] LABS: INR 0.90 (0.8-1.2); Prothrombin Time 12.80 SECONDS (12.1-14.9)
[2025-04-13 12:05] LABS: Partial Thromboplastin Time 30.5 SECONDS (23.9-36.7)
[2025-04-13 12:11] LABS: Alanine Aminotransferase 19 U/L (0-33); Albumin Level 4.6 g/dL (3.5-5.2); Alkaline Phosphatase 127 U/L (35-105); Anion Gap 16.6 (5-19); Aspartate Amino Transferase 22 U/L (0-32); Blood Urea Nitrogen 13 mg/dL (8-23); Calcium 9.2 mg/dL (8.5-10.5); Carbon Dioxide 24 mmol/L (22-29); Chloride 107 mmol/L (98-107); Creatinine Clr Calc Pharmacy 68.4907; Globulin 2.9 g/dL (1.3-4.6); Glucose 94 mg/dL (65-115); Osmolality Calculated 298 mOsm/kg (285-295); Potassium 3.6 mmol/L (3.5-5.1); Sodium 144 mmol/L (136-145); Total Protein 7.5 g/dL (6.6-8.7)
--- NOTE | 2025-04-13 12:16 | ECG_ITS ---
[facility] Date: 2025-04-13 Pat Name: Trisha Ibarra Department: Room: Gender: Female [employer]: : 1960 Requested By: Erna Nath Order Number: [id number] Chapin MD: CAMILLE HANKS Measurements Intervals [place] Rate: 56 P: 60 ID: [id number] QRS: 49 QRSD: 90 T: 67 QT: 450 QTc: 436 Interpretive Statements SINUS BRADYCARDIA Compared to ECG 04/20/2024 15:19:57 Sinus rhythm no longer present T-wave abnormality no longer present Electronically Signed On 04-13-2025 16:47:37 CDT by CAMILLE HANKS [email or web address]
[2025-04-13 12:17] LABS: Add Urine Microscopic? NO
[2025-04-13 12:20] VITALS: BP 159/73; PULSE 58; RESP 15; O2SAT 97
[2025-04-13 12:21] LABS: Glucose Urine UA Negative (Normal); Nitrate Urine Negative (Negative)
[2025-04-13 12:26] LABS: Charge for UA Resulting for Rev; Specific Gravity, Urine 1.039 (1.005-1.030)
[2025-04-13 12:31] LABS: PCP Screen Urine Negative (Negative)
[2025-04-13 12:46] VITALS: BP 170/68; PULSE 56; O2SAT 94
== END 2025-04-13 12:46 | disposition home or self-care (01) ==
PROVIDERS: Emergency Provider Emergency Medicine; PCP Family Medicine
DX: G45.9 Transient cerebral ischemic attack, unspecified (principal); Z79.82 Long term (current) use of aspirin; Z79.02 Long term (current) use of antithrombotics/antiplatelets; Z87.891 Personal history of nicotine dependence; E78.5 Hyperlipidemia, unspecified; I10 Essential (primary) hypertension; I25.10 Atherosclerotic heart disease of native coronary artery without angina pectoris
CPT/HCPCS: 36415; 36416; 70450; 70496; 70498; 80053; 80306; 81003; 82962; 85025; 85610; 85730; 93005; 99285

== ENCOUNTER 2025-04-19 07:34 | Outpatient (CLI) | payer MEDICARE, SELFPAY ==
--- NOTE | 2025-04-19 08:00 | MR_ITS ---
WS: [id number] MRI HEAD WITH CONTRAST TECHNIQUE: Sagittal T1, T2 axial, T2 axial FLAIR, axial susceptibility weighted imaging, axial diffusion weighted images, and coronal T2 images were obtained. Pre and post-T1 axial and post T1 coronal images. ADC and FSPGR images. CLINICAL INFORMATION: tia FINDINGS: 6 mm focus of restricted diffusion in the RIGHT frontal parietal junction with associated T2 signal abnormality and enhancement compatible with acute/very early subacute ischemia. No other foci of restricted diffusion. Mild small vessel changes. Mild parenchymal volume loss. Tiny chronic lacunar infarct RIGHT cerebellum. Normal vascular flow voids at the skull base. No extra-axial fluid collections. Paranasal sinuses and mastoid air cells are well aerated. Normal optic chiasm and pituitary infundibulum. No hemosiderin on susceptibility- weighted images. MR/MR head wo/w con [id number] IMPRESSION: 1. 6 mm focus of restricted diffusion at the RIGHT frontoparietal junction wit h a small amount of T2 signal abnormality and enhancement consistent with recen t acute to very early subacute infarct. 2. No other foci of restricted diffusion. 3. Mild small vessel changes.
[2025-04-19] MEDS: gadobenate dimeglumine 20 mL vial 17 ML IV (08:41)
== END 2025-04-19 07:35 | disposition home or self-care (01) ==
LOC: RAD 07:37
PROVIDERS: PCP Family Medicine; Visit Provider Family Medicine
DX: G45.9 Transient cerebral ischemic attack, unspecified (principal); I67.82 Cerebral ischemia; G31.89 Other specified degenerative diseases of nervous system
CPT/HCPCS: 70553

== ENCOUNTER 2025-04-24 13:59 | Outpatient (CLI) | payer MEDICARE, SELFPAY ==
--- NOTE | 2025-04-24 14:15 | USCV_ITS ---
Trisha Ibarra Age: 64 Gender: F : 1960 Exam Date: 04/24/2025 14:18 Ordering Phys: Jose D Fleming MD Technologist: MARIBEL [place]am Location[place] [facility] [place] Indication: Tia BP: 162 / 84 HR: 55 Rhythm: Sinus Technical Quality: Adequate MEASUREMENTS (Male / Female) Normal Values 2D ECHO LV Diastolic Diameter PLAX 4.6 cm 4.2 - 5.9 / 3.9 - 5.3 cm IVS Diastolic Thickness 0.9 cm 0.6 - 1.0 / 0.6 - 0.9 cm IVS Systolic Thickness 1.8 cm LVPW Diastolic Thickness 1.7 cm 0.6 - 1.0 / 0.6 - 0.9 cm LVPW Systolic Thickness 1.7 cm LVOT Diameter 2.0 cm LV Ejection Fraction 2D Teich 53.6 % LV Ejection Fraction MOD 4C 61.8 % LV Ejection Fraction MOD 2C 51.5 % LV Ejection Fraction 2C AL 54.6 % LA Diameter 4.3 cm RA Systolic Volume 4C AL 54.8 ml RA Systolic Volume 4C MOD 51.8 ml LA Sys Volume AL 74.0 cm cubed LA Sys Volume Index AL 37.1 cm cubed/m squared Aorta at Sinotubular Diameter 2.4 cm IVC Diameter 1.6 cm M-MODE LA Ao Ratio MM 1.7 AV Cusp Separation MM 1.3 cm DOPPLER AV Peak Velocity 141.0 cm/s LVOT Peak Velocity 102.0 cm/s AV Area Cont Eq vti 2.1 cm squared AV Area Cont Eq pk 2.3 cm squared MV Peak Velocity 104.0 cm/s MV Area PHT 3.1 cm squared Mitral E to A Ratio 0.8 TR Peak Velocity 101.0 cm/s TR Peak Gradient 4.1 mmHg TV Peak E Velocity 75.0 cm/s PV Peak Velocity 95.0 cm/s FINDINGS Left Ventricle Normal left ventricular size, systolic function and wall thickness, with no regional wall motion abnormalities. Left ventricular ejection fraction is estimated at 60 %. Grade I/IV diastolic dysfunction (abnormal relaxation filling pattern), normal to mildly elevated filling pressures. Right Ventricle Normal right ventricular size and systolic function. Right Atrium Normal right atrial size. Left Atrium Moderately increased left atrial size. IA Septum Normal appearance of the interatrial septum. Mitral Valve Mildly thickened mitral valve. No mitral valve stenosis. Mild mitral valve regurgitation. Aortic Valve Mild aortic valve calcification. No aortic valve stenosis. Trace aortic valve regurgitation. Tricuspid Valve Normal tricuspid valve structure. No tricuspid valve stenosis or regurgitation. Normal pulmonary pressure. Pulmonic Valve Trace pulmonary valve regurgitation. Pericardium No pericardial effusion. Aorta Normal diameter of the aortic root and ascending thoracic aorta. IVC Normal IVC diameter. CONCLUSIONS Normal left ventricular size, systolic function and wall thickness, with no regional wall motion abnormalities. Left ventricular ejection fraction is estimated at 60 %. Grade I/IV diastolic dysfunction (abnormal relaxation filling pattern), normal to mildly elevated filling pressures. Mildly thickened mitral valve. No mitral valve stenosis. Mild mitral valve regurgitation. There is no pericardial effusion. Right atrial pressure is around 5 mm of mercury. Donna Lee MD (Electronically Signed) Final Date: 25 April 2025 12:46 S
== END 2025-04-24 14:00 | disposition home or self-care (01) ==
LOC: RAD 14:00
PROVIDERS: PCP Family Medicine; Visit Provider Family Medicine
DX: G45.9 Transient cerebral ischemic attack, unspecified (principal); I51.89 Other ill-defined heart diseases; I35.1 Nonrheumatic aortic (valve) insufficiency
CPT/HCPCS: 93306